=== PATIENT | female | born 1965 | race Asian ===

== ENCOUNTER 2016-09-18 08:00 | Outpatient (CLI) | payer MEDICAID | END 2016-09-18 08:01 | disposition home or self-care (01) | DX: I10 Essential (primary) hypertension (principal); E78.5 Hyperlipidemia, unspecified; E11.9 Type 2 diabetes mellitus without complications ==

== ENCOUNTER 2017-04-23 10:00 | Outpatient (CLI) | payer MEDICAID ==
[2017-04-23 10:40] LABS: BASOPHILS % (AUTO) 0.3 %; EOSINOPHILS # (AUTO) 0.1 10^3/uL (0.0-0.7); EOSINOPHILS % (AUTO) 1.6 %; HCT - HEMATOCRIT 38.3 % (37.0-47.0); HGB - HEMOGLOBIN 12.8 g/dL (12.0-16.0); LYMPHOCYTES # (AUTO) 1.9 10^3/uL (1.5-3.5); LYMPHOCYTES % (AUTO) 48.4 %; MEAN CORPUSCULAR HEMOGLOBIN 26.9 pg (27.0-31.0); MEAN CORPUSCULAR HGB CONC 33.3 g/dL (32.0-36.0); MEAN CORPUSCULAR VOLUME 80.5 fL (81.0-99.0); MEAN PLATELET VOLUME 7.8 fL (7.9-10.8); MONOCYTES # (AUTO) 0.3 10^3/uL (0.0-1.0); MONOCYTES % (AUTO) 7.4 %; NEUTROPHILS # (AUTO) 1.7 10^3/uL (1.5-6.6); NEUTROPHILS % (AUTO) 42.3 %; NUCLEATED RED BLOOD CELLS AUTO 0.1 /100WBC; RED BLOOD COUNT 4.75 10^6/uL (4.20-5.40); RED CELL DISTRIBUTION WIDTH 14.1 % (12.0-15.0); UNCORRECTED WHITE BLOOD COUNT 3.9 x10^3/uL; WHITE BLOOD COUNT 3.9 x10^3/uL (4.8-10.8)
[2017-04-23 10:45] LABS: ALBUMIN/GLOBULIN RATIO 1.3 (1.0-2.2); BILIRUBIN,TOTAL 0.6 mg/dL (0.2-1.0); CREATININE 0.5 mg/dL (0.4-1.0); POTASSIUM 3.8 mmol/L (3.5-5.0); TOTAL PROTEIN 7.4 g/dL (6.7-8.2)
[2017-04-23 10:49] LABS: HEMOGLOBIN A1C 0.71 g/dL
== END 2017-04-23 10:01 | disposition home or self-care (01) ==
LOC: LAB 10:00
PROVIDERS: ATTEND Obstetrics & Gynecology
DX: E08.319 Diabetes mellitus due to underlying condition with unspecified diabetic retinopathy without macular edema (principal)
CPT/HCPCS: 36415; 80053; 83036; 85025

== ENCOUNTER 2017-04-23 10:07 | Outpatient (CLI) | payer MEDICAID ==
--- NOTE | 2017-04-23 11:15 | XRAY Report ---
TWO VIEW CHEST: 04/23/2017 CLINICAL INDICATION: Diabetes. FINDINGS: Frontal and lateral views of the chest demonstrate a normal cardiac silhouette. The lungs are clear. No effusion or pneumothorax is present. IMPRESSION: NORMAL CHEST. JOB #: [id number] EXT JOB #:[id number]
--- NOTE | 2017-04-23 11:46 | Ultrasound Report ---
PELVIC ULTRASOUND: 04/23/2017 CLINICAL INDICATION: Leiomyoma. TECHNIQUE: Transabdominal pelvic ultrasound performed for global evaluation. Real-time scanning performed and static images obtained. COMPARISON: 07/31/2016. FINDINGS: The uterus is anteverted. It measures 16.6 x 14.4 x 9.2 cm ( previously 15.2 X 10.5 X 8.0 cm), and is again dominated by a heterogeneous leiomyoma. The endometrium is not confidently identified. The left ovary is surgically absent. The right ovary measures 3.4 x 3.0 x 3.0 cm, and appears unremarkable. Trace free fluid is seen in the right adnexa. IMPRESSION: BULKY, HETEROGENEOUS LEIOMYOMATOUS UTERUS. NORMAL RIGHT OVARY. UTERINE SIZE HAS INCREASED FROM PREVIOUS. JOB #: [id number] EXT JOB #: [id number]
== END 2017-04-23 10:08 | disposition home or self-care (01) ==
LOC: DI 10:07
PROVIDERS: ATTEND Obstetrics & Gynecology
DX: E13.319 Other specified diabetes mellitus with unspecified diabetic retinopathy without macular edema (principal); D25.9 Leiomyoma of uterus, unspecified
CPT/HCPCS: 71020; 76856

== ENCOUNTER 2017-04-23 14:28 | Outpatient (CLI) | payer MEDICAID | END 2017-04-23 14:29 | disposition home or self-care (01) | LOC: RT 14:28 | PROVIDERS: ATTEND Obstetrics & Gynecology | DX: E13.319 Other specified diabetes mellitus with unspecified diabetic retinopathy without macular edema (principal); D25.9 Leiomyoma of uterus, unspecified; E08.11 Diabetes mellitus due to underlying condition with ketoacidosis with coma; E08.319 Diabetes mellitus due to underlying condition with unspecified diabetic retinopathy without macular edema | CPT/HCPCS: 36415; 71020; 76856; 80053; 83036; 85025 ==

== ENCOUNTER 2017-06-04 12:18 | Outpatient (CLI) | payer MEDICAID ==
[2017-06-04 12:51] LABS: BASOPHILS % (AUTO) 0.4 %; EOSINOPHILS # (AUTO) 0.1 10^3/uL (0.0-0.7); EOSINOPHILS % (AUTO) 1.2 %; HCT - HEMATOCRIT 43.9 % (37.0-47.0); HGB - HEMOGLOBIN 14.6 g/dL (12.0-16.0); LYMPHOCYTES # (AUTO) 2.1 10^3/uL (1.5-3.5); LYMPHOCYTES % (AUTO) 36.8 %; MEAN CORPUSCULAR HEMOGLOBIN 27.1 pg (27.0-31.0); MEAN CORPUSCULAR HGB CONC 33.4 g/dL (32.0-36.0); MEAN CORPUSCULAR VOLUME 81.2 fL (81.0-99.0); MEAN PLATELET VOLUME 7.9 fL (7.9-10.8); MONOCYTES # (AUTO) 0.4 10^3/uL (0.0-1.0); NEUTROPHILS # (AUTO) 3.2 10^3/uL (1.5-6.6); NEUTROPHILS % (AUTO) 54.6 %; RED CELL DISTRIBUTION WIDTH 13.9 % (12.0-15.0); UNCORRECTED WHITE BLOOD COUNT 5.8 x10^3/uL; WHITE BLOOD COUNT 5.8 x10^3/uL (4.8-10.8)
[2017-06-04 13:02] LABS: BILIRUBIN,URINE NEGATIVE (NEGATIVE); PH,URINE 5.5 PH (5.0-7.5)
[2017-06-04 13:10] LABS: ALBUMIN/GLOBULIN RATIO 1.5 (1.0-2.2); BILIRUBIN,TOTAL 0.6 mg/dL (0.2-1.0); CREATININE 0.5 mg/dL (0.4-1.0); POTASSIUM 3.7 mmol/L (3.5-5.0); TOTAL PROTEIN 8.5 g/dL (6.7-8.2)
== END 2017-06-04 12:19 | disposition home or self-care (01) ==
LOC: LAB 12:18
PROVIDERS: ATTEND Obstetrics & Gynecology
DX: D25.9 Leiomyoma of uterus, unspecified (principal)
CPT/HCPCS: 36415; 80053; 81003; 85025; 86850; 86900; 86901

== ENCOUNTER 2017-06-05 15:07 | Outpatient (CLI) | payer MEDICAID ==
[~2017-06-05 15:07] MED LIST: GADOBUTROL 7.5 MMOL/7.5 ML VIAL ONE
[2017-06-05] MEDS ORDERED: GADOBUTROL 7.5 MMOL/7.5 ML VIAL IVP ONE (16:01)
--- NOTE | 2017-06-05 17:25 | MRI Preliminary Report ---
Exam: MRI PELVIS W/WO IMPRESSION: 1. Enlarged myomatous uterus with a large dominant fibroid as described above. 2. Right-sided Bartholin gland cyst. RADIA The call report notification system was initiated by Dr. Coty Huntley at 16:58 hrs on 06/05/17. The above findings were discussed with Dr. Recinos by Dr. Coty Huntley at 17:23 hrs on 06/05/17. SITE ID: [id number]
--- NOTE | 2017-06-05 17:28 | MRI Report ---
EXAM: MRI PELVIS WITHOUT AND WITH CONTRAST EXAM DATE: 06/05/2017 04:11 PM. CLINICAL HISTORY: Leiomyoma. Increased size of the myomatous uterus seen on the prior ultrasound. COMPARISON: Pelvic ultrasound 04/23/2017. TECHNIQUE: Multiplanar, multisequence T1-weighted and fluid-sensitive sequences of the pelvis before and after administration of intravenous contrast. IV contrast: Gadolinium. Other: None. FINDINGS: Enlarged myomatous uterus measuring 16.3 x 9.6 x 13.6 centimeters. Most of the uterus is one large va scular transmural fibroid which causes severe mass effect on the endometrium pushing it anteriorly. T his fibroid measures 9.3 x 14.2 x 13.5 cm. There are smaller scattered subserosal uterine fibroids, o ne of the largest is at the right fundus measuring 3.7 x 2.9 x 3.5 cm. Endometrium measures 4 mm. Ovaries are not well seen. The enlarged uterus causes mass effect on the bladder. Bladder is mostly decompressed and appears unr emarkable. Right-sided Bartholin gland cyst measures 2.3 x 1.5 cm. No acute bowel findings are seen. No free fluid. No inguinal or pelvic lymphadenopathy seen. No acute bone findings seen. IMPRESSION: 1. Enlarged myomatous uterus with a large dominant fibroid as described above. 2. Right-sided Bartholin gland cyst. RADIA The call report notification system was initiated by Dr. Coty Huntley at 16:58 hrs on 06/05/17. The above findings were discussed with Dr. Recinos by Dr. Coty Huntley at 17:23 hrs on 06/05/17. Referring Provider Line: [phone] SITE ID: [id number]
== END 2017-06-05 15:08 | disposition home or self-care (01) ==
LOC: DI 15:07
PROVIDERS: ATTEND Obstetrics & Gynecology
DX: D25.9 Leiomyoma of uterus, unspecified (principal); D25.2 Subserosal leiomyoma of uterus
CPT/HCPCS: 72197; A9585

== ENCOUNTER 2017-06-06 06:02 | Inpatient (IN) | payer MEDICAID ==
--- NOTE | 2017-06-05 15:55 | PREOP HISTORY & PHYSICAL ---
DATE OF ADMISSION/SURGERY: 06/06/2017 DIAGNOSES 1. Large intramural leiomyoma. 2. Associated abdominopelvic pain. 3. Type 2 diabetes. 4. Hypertension. 5. Asthma, quiescent. 6. Gastroesophageal reflux disease. INTENDED SURGEY: TOTAL LAPAROSCOPIC HYSTERECTOMY; PROBABLE LAPAROTOMY; BILATERAL SALPHINGECTOMY; CYSTOSCOPY HISTORY OF PRESENT ILLNESS: The patient is a 51-year-old Turk[place] primipara woman who was referred from [facility] for evaluation and treatment of a large myomatous uterus. Ultrasound documented expanding uterine myomas. The patient is now experiencing abdominopelvic pain and pressure. In July 2016 ultrasound documents a 15.2 x 10.5 x 8.0 myoma distorting the endometrium. There is no ovarian pathology noted, and left ovary is surgically absent. On , the myomatous uterus was noted to have expansion to 16.6 x 14.4 x 9.2 cm. The myoma seemed heterogeneous. There were no vascular changes suggestive of sarcoma. (Films reviewed with Dr. Watts.) MRI is scheduled. The fibroid uterus is tender and associated with a midline lower abdominopelvic tenderness. She reports perimenopausal menorrhagia. She was originally evaluated by Dr. Weeks and counseled on the available treatment options. The patient chose hysterectomy. She has had a 2nd counseling session with myself in which the various treatments were reviewed, including fibroid embolization and focused ultrasound versus various forms of hysterectomy. The patient strongly opted for hysterectomy and is interested in a vaginal approach, or if laparotomy is necessary a transverse incision. Hysterectomy advantages and risks were contrasted. She is aware of the possibility of blood loss, transfusion, infection, anesthesia reaction, postoperative pain, difficult recovery, including complications secondary to diabetes and hypertension. Possibility of sarcoma was also discussed, usually probabilities 1 in 1000, but given her age and documented fibroid expansion, the possibility is probably slightly higher, though not prohibitive. Ultrasound vascular characteristics are not consistent with a sarcoma. MRI is pending. Patient has had normal Pap smears. Last smear was in June 2016. Patient had an uneventful vaginal delivery of a male . HISTORY The patient has a longstanding history of type 2 diabetes in excess of 10 years. She maintains her weight and practices an ADA diet. Additionally, she uses metformin and exercise. Last hemoglobin A1c was 6.2. Patient has asthma, which is quiescent. She uses a ProAir inhaler as needed. Hyperlipidemia, on medication. Finally, gastric reflux. History of TMJ. PAST SURGICAL HISTORY 1. TMJ. 2. Colonoscopy 2013. 3. Left oophorectomy, uneventful. ALLERGIES 1. HYDROMORPHONE, PRURITUS. 2. ACCUPRIL. 3. HYDROCHLOROTHIAZIDE. MEDICATIONS 1. Metformin. 2. Benazepril. 3. Mini dose aspirin. 4. ProAir. 5. Multivitamin. 6. Iron. FAMILY HISTORY: Positive for diabetes and CAD, CVA. No inheritable diseases known. 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 Teenage son. Very active in community, doing karen work and pentecostalism activities. Never a smoker, nor drugs, nor alcohol. REVIEW OF SYSTEMS CONSTITUTIONAL: No fevers, chills. HEENT: Negative. LUNGS: Asthma as noted in the HPI. CARDIOVASCULAR: No chest pain currently, occasional description of vague chest discomfort. BREASTS: Negative. GI: Negative. : See HPI. No stress or urge incontinence. MUSCULOSKELETAL: Negative. NEUROLOGIC: Negative. SKIN: Negative. PHYSICAL EXAMINATION GENERAL: Well-groomed, slender woman, sitting comfortably in a chair, alert, oriented, fluid speech; good command of the Malay language. VITAL SIGNS: Afebrile, normotensive. HEAD/NECK: EOMI. Nonicteric sclerae. Neck supple. Dentition in good repair. No thyromegaly. LUNGS: Clear to auscultation in all lobes. CARDIAC: Regular, no murmur, no gallop. EKG pending. BREASTS: Deferred. ABDOMEN: No hepatosplenomegaly. Midline bulge from a 16 to 17-week size uterus, somewhat tender. GENITOURINARY: Vulva, no lesions. Normal hair distribution. VAGINA: No significant cystorectocele. No urethral tenderness or noted hypermobility. CERVIX: Distorted and difficult to find cervical os due to fibroid effect. UTERUS: A 17, possibly 18 weeks' size. ADNEXA: Cannot evaluate due to uterine size. EXTREMITIES: Good motion in all 4 extremities, no joint tenderness or muscle wasting. Feet warm. NEUROLOGIC: Grossly intact. Patellar reflexes 2+ and equal. SKIN: Survey of the skin finds no significant openings or rash. ASSESSMENT: The patient has a large uterine leiomyoma that may have had slight expansion over the last 11 months. Uterine tenderness thought to be due to degeneration. Ultrasound characteristics are not suspect for sarcoma. MRI pending. The patient desires hysterectomy, valuing expedient solution and removal of uterus. Hysterectomy may be technically challenging. The patient requests attempt at vaginal hysterectomy if possible, and total laparoscopic hysterectomy may be an option. However, we will need to establish a method of mobilization of the uterus through the endocervical canal. Review of MRI is necessary to determine if there is enough space to allow vaginal approach or laparoscopic approach. Alternatively, there is a high possibility of laparotomy. Mobility will affect the incision type since an immobile uterus may make it difficult to access anatomy through a transverse incision. PLAN: Approach to patient's hysterectomy will be tempered by the MRI information and clinical exam under anesthesia. Patient understands that a laparotomy may be necessary, and if mobility is a concern, midline incision may work best. At current time, we do not suspect sarcoma, but MRI information will help confirm this opinion. Patient understands if the uterus is morcellated and the tumor is malignant it could spread the cancer and worsen her prognosis. Had detailed discussion with the patient as to surgical approach and options. She consents to MRI. Preoperatively, we will use MiraLax laxative as a mild mechanical bowel prep. Preoperative antibiotics per standards. Sequential compression boots in the OR. JOB #: [id number] EXT JOB #:[id number] ERMIAS
[2017-06-06] MEDS ORDERED: LACTATED RINGERS 1,000 ML IV ONE ×5 (06:37→13:28)
[2017-06-06] MEDS ORDERED: ceFAZolin 2 GM/50 ML 2 GM/50 ML BAG IV ONE (06:38)
[2017-06-06 06:51] LABS: HCG UR QUAL NEGATIVE
[2017-06-06] MEDS ORDERED: GENTAMICIN 40 MG/1 ML 2 ML MDV ONE (09:00)
[2017-06-06] MEDS ORDERED: ACETAMINOPHEN 1,000 MG/100 ML 100 ML IV ONE (09:25)
[2017-06-06] MEDS ORDERED: MIDAZOLAM 2 MG/2 ML VIAL IVP ONE (09:25)
[2017-06-06] MEDS ORDERED: LIDOCAINE-MPF 2% 5 ML VIAL IM ONE (09:25)
[2017-06-06] MEDS ORDERED: BUPIV EP ONE (09:25)
[2017-06-06] MEDS ORDERED: FENT EP ONE (09:25)
[2017-06-06] MEDS ORDERED: ePHEDrine 50 MG/ML AMP IVP ONE (09:25)
[2017-06-06] MEDS ORDERED: PROPOFOL 200 MG/20 ML VIAL IVP ONE (09:25)
[2017-06-06] MEDS ORDERED: GLYCOPYRROLATE 1 MG/5 ML VIAL IVP ONE (09:25)
[2017-06-06] MEDS ORDERED: NEOSTIGMINE 1 MG/1 ML 10 ML MDV IVP ONE (09:25)
[2017-06-06] MEDS ORDERED: PHENYLEPHRINE 10 MG/ML VIAL IV ONE (09:25)
[2017-06-06] MEDS ORDERED: BUPIVACAINE 0.5%-EPI 1:200000 PF 30 ML VIAL SUBQ ONE (09:45)
[2017-06-06] MEDS ORDERED: GENTAMICIN 40 MG/1 ML 2 ML MDV IL ONE (09:46)
[2017-06-06] MEDS ORDERED: SODIUM CHLORIDE 0.9% 1,000 ML IV ONE (13:27)
[2017-06-06] MEDS ORDERED: BUPIVACAINE 0.5% PF 30 ML VIAL INFIL ONE (13:29)
[2017-06-06] MEDS ORDERED: ONDANSETRON 4 MG/2 ML VIAL IVP PRN (14:13)
[2017-06-06] MEDS ORDERED: ZOLPIDEM 5 MG TABLET PO PRN (14:13)
--- NOTE | 2017-06-06 14:16 | XRAY Report ---
SUPINE ABDOMEN: 06/06/2017 CLINICAL INDICATION: Incorrect count. FINDINGS: Portable supine intraoperative image demonstrates no evidence of a retained surgical instr ument. IMPRESSION: NO EVIDENCE OF RETAINED SURGICAL INSTRUMENT. CRITICAL TEST: RESULTS CALLED TO THE OPERATING ROOM ON 06/06/2017 AT 1330 HOURS. JOB #: [id number] EXT JOB #:[id number]
[2017-06-06 14:18] LABS: BASOPHILS % (AUTO) 0.2 %; EOSINOPHILS % (AUTO) 0.1 %; LYMPHOCYTES # (AUTO) 2.1 10^3/uL (1.5-3.5); LYMPHOCYTES % (AUTO) 14.1 %; MEAN CORPUSCULAR HEMOGLOBIN 26.5 pg (27.0-31.0); MEAN CORPUSCULAR HGB CONC 32.7 g/dL (32.0-36.0); MEAN PLATELET VOLUME 7.9 fL (7.9-10.8); MONOCYTES % (AUTO) 6.7 %; NEUTROPHILS # (AUTO) 11.8 10^3/uL (1.5-6.6); NEUTROPHILS % (AUTO) 78.9 %; RED BLOOD COUNT 2.31 10^6/uL (4.20-5.40); RED CELL DISTRIBUTION WIDTH 13.6 % (12.0-15.0)
[2017-06-06 14:25] LABS: HCT - HEMATOCRIT 18.7 % (37.0-47.0); HGB - HEMOGLOBIN 6.1 g/dL (12.0-16.0)
[2017-06-06] MEDS: fentaNYL 100 MCG/2 ML VIAL ONE ×2 (14:25→15:25)
[2017-06-06] MEDS ORDERED: HYDROmorphone 1 MG/ML AMP ONE (14:27)
[2017-06-06] MEDS ORDERED: INSULIN REGULAR HUMAN 100 UNIT/1 ML 10 ML MDV ONE (14:34)
[2017-06-06] MEDS ORDERED: diphenhydrAMINE INJ 50 MG/ML VIAL ONE (14:44)
--- NOTE | 2017-06-06 14:49 | OPERATIVE REPORT ---
Operative Report - General Admit Date: 06/06/17 Procedure Date: 06/06/17 Planned Procedure: TLH Possible GASPER Pre-Op Diagnosis: Expanding Large Fibriod Uterus, Pelvic Pain; DM; HTN; Asthma Procedure Performed: TLH converted to GASPER, Cystoscopy Post Op Diagnosis: Same - Procedure Note Primary Surgeon: Bacilio Buchanan MD, Secondary Surgeon: Rebekah Recinos DO Anesthesia Technique: General ET tube Pathology: Myomas & Uterus IV Fluids (mL): 4,700 Estimated Blood Loss (mL): 800 Urine Output (mL): 350 Drain/Tube Type: Other (Horowitz) Complications: None - Other Other Information/Narrative: Postop Hbg 6.1 w stable VS; Transfusion 2 u PRBC
[2017-06-06 15:22] LABS: HCT - HEMATOCRIT 28.1 % (37.0-47.0); HGB - HEMOGLOBIN 9.2 g/dL (12.0-16.0); MEAN CORPUSCULAR HEMOGLOBIN 27.4 pg (27.0-31.0); MEAN CORPUSCULAR HGB CONC 32.7 g/dL (32.0-36.0); MEAN CORPUSCULAR VOLUME 83.8 fL (81.0-99.0); MEAN PLATELET VOLUME 8.1 fL (7.9-10.8); RED BLOOD COUNT 3.35 10^6/uL (4.20-5.40); RED CELL DISTRIBUTION WIDTH 14.8 % (12.0-15.0); WHITE BLOOD COUNT 17.5 x10^3/uL (4.8-10.8)
[2017-06-06 15:34] LABS: CALCIUM 7.6 mg/dL (8.5-10.3); CREATININE 0.6 mg/dL (0.4-1.0); POTASSIUM 3.2 mmol/L (3.5-5.0)
[2017-06-06] MEDS ORDERED: fentaNYL 100 MCG/2 ML VIAL ONE (15:50)
[2017-06-06] MEDS ORDERED: SODIUM CHLORIDE FLUSH 0.9% 10 ML SYRINGE IVP ONE (16:15)
[2017-06-06] MEDS: LACTATED RINGERS 1,000 ML IV SCH (16:50)
[2017-06-06] MEDS ORDERED: IBUPROFEN 600 MG TABLET PO SCH (18:00)
[2017-06-06 18:12] LABS: HCT - HEMATOCRIT 35.8 % (37.0-47.0); HGB - HEMOGLOBIN 11.8 g/dL (12.0-16.0)
[2017-06-06] MEDS: ACETAMINOPHEN 1,000 MG/100 ML 100 ML IV PRN (19:55)
[2017-06-06] MEDS ORDERED: POTASSIUM CHLORIDE 20 MEQ TABLET PO SCH (20:35)
[2017-06-06 20:55] LABS: BASOPHILS % (AUTO) 0.1 %; HCT - HEMATOCRIT 32.5 % (37.0-47.0); HGB - HEMOGLOBIN 10.8 g/dL (12.0-16.0); LYMPHOCYTES # (AUTO) 0.8 10^3/uL (1.5-3.5); LYMPHOCYTES % (AUTO) 5.5 %; MEAN CORPUSCULAR HEMOGLOBIN 27.5 pg (27.0-31.0); MEAN CORPUSCULAR HGB CONC 33.3 g/dL (32.0-36.0); MEAN CORPUSCULAR VOLUME 82.5 fL (81.0-99.0); MEAN PLATELET VOLUME 8.4 fL (7.9-10.8); MONOCYTES # (AUTO) 0.8 10^3/uL (0.0-1.0); MONOCYTES % (AUTO) 5.5 %; NEUTROPHILS # (AUTO) 12.8 10^3/uL (1.5-6.6); NEUTROPHILS % (AUTO) 88.9 %; RED BLOOD COUNT 3.94 10^6/uL (4.20-5.40); RED CELL DISTRIBUTION WIDTH 14.3 % (12.0-15.0); UNCORRECTED WHITE BLOOD COUNT 14.4 x10^3/uL; WHITE BLOOD COUNT 14.4 x10^3/uL (4.8-10.8)
[2017-06-06 21:06] LABS: ALBUMIN/GLOBULIN RATIO 1.4 (1.0-2.2); BILIRUBIN,TOTAL 1.1 mg/dL (0.2-1.0); CALCIUM 7.9 mg/dL (8.5-10.3); CREATININE 0.6 mg/dL (0.4-1.0); POTASSIUM 3.7 mmol/L (3.5-5.0); TOTAL PROTEIN 4.6 g/dL (6.7-8.2)
[2017-06-06 21:09] LABS: HEMOGLOBIN A1C 0.51 g/dL
[2017-06-06] MEDS: FAMOTIDINE 20 MG TABLET PO SCH (21:28)
[2017-06-06] MEDS: cefTRIAXone 1 GM in SODIUM CHLORIDE 0.9% MINIBAG 100 ML IV SCH (21:29)
[2017-06-06] MEDS: INSULIN ASPART 300 UNIT/3 ML PEN SUBQ SCH (21:48)
[2017-06-06] MEDS: SODIUM CHLORIDE FLUSH 0.9% 10 ML SYRINGE IVP SCH (23:27)
[2017-06-07] MEDS: MORPHINE 2 MG/ML SYRINGE IVP PRN ×5 (01:13→14:10)
[2017-06-07] MEDS: LACTATED RINGERS 1,000 ML IV SCH ×2 (02:57→14:16)
--- NOTE | 2017-06-07 03:21 | OPERATIVE REPORT ---
DATE OF SURGERY: 06/06/2017 00:00:00 PREOPERATIVE DIAGNOSES 1. Expanding large leiomyometrium, A 17-18 week size dominated by a large leiomyoma and several small ones. 2. Associated pelvic pain. 3. Type 2 diabetes. 4. Hypertension. 5. Asthma. POSTOPERATIVE DIAGNOSES 1. Expanding large leiomyometrium. 2. Associated pelvic pain. 3. Type 2 diabetes. 4. Hypertension. 5. Asthma. 6. 20 week fibroid uterus found dominated by a large leiomyoma and several small ones. PROCEDURES: Laparoscopic assisted hysterectomy converted to total abdominal hysterectomy, myomectomy, cystoscopy, adhesiolysis. SURGEON: Bacilio Buchanan MD, FACOG. PRODUCTION HAND: Rebekah Recinos DO, FACOG. HAIR DRYER: Grady Crockett, certified nurse shift supervisor rn. ANESTHESIA: General, ET tube placed. COMPLICATIONS: None. BLOOD LOSS: 400. FLUIDS 4700. URINE OUTPUT: 700. FINDINGS: Exam under anesthesia finds the cervix markedly distorted and pushed deep into the patient's left vaginal fornix. The uterus palpates to about 17-19 weeks' size. There are no vulvar lesions. There is no cuff dehiscence. Laparoscopy reveals an 20 week size uterus with cystic activity on the left ovary. During laparotomy, it was confirmed that she had underwent a right salphing- oophorectomy. The uterus was dominated by a large fibroid and several small 3-4 cm fibroids. The uterine body itself had been Isma rotated and pushed far to the left. When eventually harvested, the cervix was inspected and had no lesions. The uterine vessels, bladder & ureters were distorted by mass effect. The left ovary appeared to be benign. There were dense adhesions between the uterus and pelvic side carranza, the anterior abdominal wall, & the rectum. Cystoscopy confirms functional right and left ureter. The bladder cavity normalized to globular configuration. There was no cystitis. TECHNIQUE: Prior to the procedure, I had a consultation with [facility] radiologist to review the MRI. There was marked anatomic distortion due to the large uterine fibroid and secondary fibroids. Mass effect created twisting and deflection of the uterus to the left. There were no characteristics of the MRI suggestive of sarcoma. Prior to surgery, I had a final preop conference with the patient and her niece & nephew (Nurses and Nurse practitioner) I reviewed the MRI results. An option was suggested that she undergo fibroid embolization. The advantage would be that the uterine fibroids would be smaller and a hysterectomy would not be as difficult, thereby decreasing the chance of hemorrhage or damage to urinary structures. If effective fibroid embolization may negate the need for hysterectomy. The patient and family spent 15 minutes considering After answering all the family's pertinent questions. The patient decided that she would rather undergo hysterectomy today due to the amount of pain that she was experiencing. She is aware of the large fibroid posed increased surgical risk. Operative consent was signed. Plan was understood to be laparoscopy with probable laparotomy. Laparoscopy's most achievable goal was to dissect and ligate the uterine arteries In order to reduce blood loss during anticipated abdominal hysterectomy with myomectomy. The patient was told that she would probably have a midline incision. The patient was brought to the operating room and placed in the supine position on the OR table. She was uneventfully induced and intubated. She was moved to the low dorsal lithotomy position. She was prepped in the standard sterile fashion, including a Horowitz catheter. A timeout briefing was done per protocol. Exam under anesthesia was conducted. The vaginal apex was elevated in the pelvis with the cervix itself turned strongly to the left side. Exam under anesthesia confirmed 18-19 week size uterus. No uterine manipulator was inserted. A 5 mm trocar was inserted through the umbilicus under direct visualization. The abdomen was insufflated; however, the uterus actually blocked the trocar outflow. Therefore, a Veress needle was placed in the midclavicular line on the right side at Brooks's point. Saline drop test was good. The abdomen was insufflated with CO2 gas under 12 mm of pressure. Insufflation created more space for surgery. The 5 mm trocar operating ports were placed slightly below the umbilicus on the right and left side. The abdomen was assessed. The right tube and ovary were identified. The tube was adherent into the cul-de- sac. The round ligament was desiccated and divided with LigaSure. Next, the ovarian uterine ligament was desiccated and divided with LigaSure. We continued sharp dissection and periodic use of the LigaSure to open the broad ligament anteriorly. The left ureter entered the pelvis at the brim and tracked. Lower in the pelvis, it was difficult to determine the exact path because adhesions and distortion of some anatomic structures. An anterior bladder flap was developed with LigaSure. A laparoscopic single-toothed tenaculum was used to place the uterus on medial tension and provide exposure to the retroperitonal space and eventual access to the uterine vessels. Unfortunately, the tenaculum Puncture and Prior dissection in the Left corneal region oozed. The oozing area was clamped with laparoscopic Hemoclips. LigaSure was used to apply bipolar cautery. The The bleeding did not come under adequate control and the decision was made to convert to laparotomy. At this point, measured blood loss was between 250 and 300 mL. The abdomen was opened uneventfully with a midline incision starting just above the pubis and extending to just below the umbilicus. A Kay retractor was placed. Pressure was placed of on the right uterine cornual dissection . Traction was placed on the uterus to expose the vessels. Using the LigaSure and staying close to the uterine body, feeding vessels on the left side were desiccated. A similar dissection was conducted on the right side. The right tube and ovary were surgically absent. Exposure was problematic. Decision was made to perform myomectomy to access the lower uterine segment in order to complete the hysterectomy, and 5 mL of dilute Pitressin were injected into the uterine leiomyoma capsule and massaged around to the fibroid body. Prior to shelling out the main fibroid, a smaller fibroid was performed. Next, the anterior portion of the fibroid was opened with a scalpel and a cleavage plane developed between the myometrium and fibroid. Multiple uses of monopolar cautery, bipolar cautery, and suture ligature were used. Occasionally, we ran into a significant vessel that was suture ligated. Eventually, the main fibroid was shelled out. Photos were taken. The myometrium was Ttghtly closed with multiple sutures of #1 Vicryl to obliterate the raw space and provide hemostasis. After removal of the major fibroid, the uterus was palpated and cervical fibroids were identified. A bladder flap was developed with sharp dissection and the uterus mobilized superiorly. Staying close to the uterine body, feeding vessels including the uterine arteries on the right side were desiccated and divided with LigaSure. Special care was taken in the anterior dissection to avoid the ureters, which were anticipated to be out draped anterior over the cervix midline. Meticulous dissection with sharp and electrocautery was done to mobilize the distorted cervix and uterus. Using a sponge stick, anterior fornix was identified and sharply opened with monopolar cautery. Next, the left hand side of the cervical cuff was circumscribed. Using the LigaSure, major vessels including the uterine vessel were desiccated and divided close to the uterus, thus avoiding the displaced ureters. After circumscribing the cervix, the vaginal cuff was closed with a running interlocked stitch of 2-0 Vicryl. Attention was next turned to the cystoscopic phase. The Horowitz was discontinued and an 70 degree video cystoscope was introduced into the bladder. Systematic scanning of the bladder confirmed no incursions or disruption or cystitis. The right and left ureteric orifices were found and there was free flow of blue stained urine on each side. Photographs were taken. The cystoscope was removed and Horowitz replaced. The abdominal cavity was lavaged with warm normal saline and rinsed with gentamicin solution. There was some ooze near the the right utero-ovarian ligament. This area was desiccated. Operative sites were inspected and found to be hemostatically secure. Next, we re-peritonealized the pelvis with a running stitch of 2-0 Vicryl. Closure was accomplished with a peritoneal stitch of 2-0 Vicryl, followed by series of interrupted stitches closing the rectus muscles. The fascia was closed with interrupted sutures of 0 Vicryl. Subcutaneous space was closed with interrupted sutures of 2-0 Vicryl. Skin was closed with a running subcuticular stitch of 4-0 Vicryl. Trocar wounds were closed with Dermabond. After spraying Mastisol on the skin margins, a wound VAC was applied to the midline incision. The patient was uneventfully awakened from general anesthesia and extubated. She went to the recovery room in stable condition. DISPOSITION: In recovery, the patient was noted to be hypotensive with tachycardia. Immediate hemoglobin was done and was found to be 6.2. The 2 units of packed red blood cells in reserve were transfused. Given the amount of IVF given, it was unsure what component of the anemia was dilutional versus intraoperative blood loss. I watched the abdomen with serial inspection for distention, which did not occur. Electrolytes were accomplished, which showed mild Hypokalemia. Fentanyl was used at 50 mcg about every hour for pain control. Prior to moving to the floor, hospitalist's consultation was obtained with Dr. Ivy. It was decided that they would manage her diabetes and hypertension and I requested a monitored bed. JOB #: [id number] EXT JOB #:[id number] ERMIAS
--- NOTE | 2017-06-07 04:10 | CONSULTATION NOTE ---
DATE OF CONSULTATION: 06/06/2017 00:00:00 TIME: 8:45 p.m. CODE STATUS: FULL CODE. PRIMARY CARE DOCTOR: Grady Barbosa MD. EXAM LIMITATIONS: None. RECORDS REVIEWED: Yes. SOURCE OF INFORMATION: The patient. CHIEF COMPLAINT: She came in for a total hysterectomy for a large intramural leiomyoma. The patient does not have an advanced directive. HISTORY OF PRESENT ILLNESS: The patient is a 51-year-old female who was admitted for a total hysterectomy for a large intramural leiomyoma. Her diabetes mellitus, hypertension, history of asthma, and gastroesophageal reflux disease will need to be treated. DRUG ALLERGIES 1. HYDROCHLOROTHIAZIDE. 2. QUINAPRIL. 3. HYDROMORPHONE (RASH). 4. AVOCADO. HOME MEDICATIONS 1. Calcium carbonate 600 mg 1 tab p.o. every day. 2. Benazepril 40 mg 1 tab p.o. every day. 3. Baby aspirin 81 mg 1 tab p.o. every day. 4. ProAir 8.5 puff INH every day. 5. Metformin 1000 mg 1 tab p.o. twice a day. 6. Multivitamin 1 tab p.o. every day. 7. Ferrous sulfate. PAST MEDICAL HISTORY: Type 2 diabetes mellitus, hypertension, hyperlipidemia, asthma and GERD. PAST SURGICAL HISTORY: TMJ, colonoscopy and left oophorectomy. FAMILY HISTORY: Mother and father, diabetes mellitus. Nephew, thyroid disease. Maternal grandfather, coronary artery disease. Mother and father, CVA. SOCIAL HISTORY: She is . She has one child. She works at a [email or web address]. She does not smoke. She does not drink alcohol. She does not use recreational drugs and she lives at home with her child. REVIEW OF SYSTEMS RESPIRATORY: There is no shortness of breath, no productive cough. HEART: No palpitations. No chest pain. ABDOMEN: Constipation and pelvic pain. URINARY: No burning urine, no frequency. HEAD: No headaches. EYES: No blurred vision. EARS: No tinnitus, no ear pain. NOSE: No runny nose. THROAT: No pain or redness. MUSCULOSKELETAL: There is lower back pain. JOINTS: No joint pain. NEUROLOGICAL: No dementia. No aphasia, no limb weakness. WEAKNESS AND FATIGUE: Yes. FEVER: No. PHYSICAL EXAMINATION VITAL SIGNS: Temperature of 95 degrees, pulse of 96, respiratory rate of 23, blood pressure 91/59, O2 saturation of 98% on room air. GENERAL: She is alert and cooperative. HEENT: Head is atraumatic, normocephalic. Eyes are PERRLA, EOMI. NECK: Supple. No JVD, no bruits, no thyroid enlargement. No adenopathy. HEART: Regular rate and rhythm. LUNGS: Clear to auscultation. ABDOMEN: Positive for bowel sounds that are hypoactive. It is soft. She is tender over the pelvic region. There is no rebound, no guarding. EXTREMITIES: Warm. There is no edema, +2 pedal pulses. She has 5/5 muscle strength in upper and lower extremities. NEUROLOGIC: She is oriented x3, follows commands, moves all 4 extremities. Cranial nerves 2-12 are intact. LABORATORY DATA: On labs, her sodium is 137, potassium is 3.2, chloride is 104, bicarbonate is 21, BUN is 16, creatinine 0.6, glucose is 269. White blood cells are 17.5, hemoglobin is 9.2, hematocrit is 28.1, platelets are 257,000. BNP is 10. Glomerular filtration rate is 105. ASSESSMENT AND PLAN: She had a laparoscopic total hysterectomy for a large intramural leiomyoma today, so it is status postop day 1. Her type 2 diabetes mellitus is being treated with sliding scale NovoLog. For her hypokalemia, she will get potassium chloride. Her hypotension is being controlled with IV fluids. Her history of asthma is not being treated at present because the patient has no shortness of breath. For her gastroesophageal reflux disease, the patient is on Pepcid. For suspected infection, she is on IV Rocephin, blood cultures and sensitivity x2. For deep venous thrombosis prophylaxis, she is on SCDs. The Pepcid is being used to also prevent stress ulcers. Her anticipated length of stay is 3 days. JOB #: [id number] EXT JOB #:[id number] [facility]
[2017-06-07 05:42] LABS: BASOPHILS % (AUTO) 0.1 %; EOSINOPHILS % (AUTO) 0.1 %; HCT - HEMATOCRIT 28.5 % (37.0-47.0); HGB - HEMOGLOBIN 9.6 g/dL (12.0-16.0); LYMPHOCYTES # (AUTO) 1.7 10^3/uL (1.5-3.5); LYMPHOCYTES % (AUTO) 16.2 %; MEAN CORPUSCULAR HEMOGLOBIN 27.9 pg (27.0-31.0); MEAN CORPUSCULAR HGB CONC 33.8 g/dL (32.0-36.0); MEAN CORPUSCULAR VOLUME 82.5 fL (81.0-99.0); MEAN PLATELET VOLUME 8.7 fL (7.9-10.8); MONOCYTES # (AUTO) 0.8 10^3/uL (0.0-1.0); NEUTROPHILS % (AUTO) 75.6 %; RED BLOOD COUNT 3.45 10^6/uL (4.20-5.40); RED CELL DISTRIBUTION WIDTH 14.7 % (12.0-15.0); UNCORRECTED WHITE BLOOD COUNT 10.5 x10^3/uL; WHITE BLOOD COUNT 10.5 x10^3/uL (4.8-10.8)
[2017-06-07 05:53] LABS: ALBUMIN/GLOBULIN RATIO 1.4 (1.0-2.2); BILIRUBIN,TOTAL 0.4 mg/dL (0.2-1.0); CALCIUM 7.8 mg/dL (8.5-10.3); CREATININE 0.4 mg/dL (0.4-1.0); TOTAL PROTEIN 4.7 g/dL (6.7-8.2)
[2017-06-07] MEDS: SODIUM CHLORIDE FLUSH 0.9% 10 ML SYRINGE IVP SCH ×3 (06:46→21:25)
[2017-06-07] MEDS: INSULIN ASPART 300 UNIT/3 ML PEN SUBQ SCH ×4 (08:31→21:24)
[2017-06-07] MEDS: oxyCODONE 5 MG TABLET PO PRN ×3 (08:46→18:17)
[2017-06-07] MEDS: cefTRIAXone 1 GM in SODIUM CHLORIDE 0.9% MINIBAG 100 ML IV SCH (08:46)
[2017-06-07] MEDS: POLYETHYLENE GLYCOL 3350 17 GM PACKET PO SCH (08:47)
[2017-06-07] MEDS: FAMOTIDINE 20 MG TABLET PO SCH ×2 (08:47→20:15)
--- NOTE | 2017-06-07 12:31 | PROVIDER PROGRESS NOTE ---
Subjective - General Admit Date: 06/06/17 Procedure Date: 06/06/17 Post Op Days: 1 Procedure Performed: GASPER, Myomectomy, cysto, laparoscopy - Review of Systems Wound/Incisions: positive: Healing well Drain Type: Horowitz Drain Output Description: Clear Blue Stained General: positive: Weakness, Fatigue HEENT: positive: No symptoms Pulmonary: positive: No symptoms Cardiovascular: positive: No symptoms Gastrointestinal: positive: Abdominal pain Genitourinary: positive: No symptoms Musculoskeletal: positive: Shoulder pain (Bursitis R) Skin: positive: No symptoms Psychiatric: positive: Anxiety - Other Other Information/Narrative: Patient had a stormy course immediately postop w hypotension & tachycardia. 2 units of PRBC transused. Pt tranferred to ICU for close watch. Hospitalists suspected failure but BPN negative. BP improved and urine output maintained. Serial H/H show 1g decrease since last night. Pt has brightened. Objective - Patient Data Vital Signs: Vital Signs x48h Temp Pulse Resp BP Pulse Ox 06/07/17 12:00 97 21 124/53 L 95 06/07/17 11:00 93 23 128/54 L 97 06/07/17 10:00 91 23 121/55 L 96 06/07/17 09:00 88 25 H 123/47 L 97 06/07/17 07:59 99.7 F H 83 22 119/54 L 95 06/07/17 06:50 84 21 113/49 L 98 06/07/17 06:00 83 20 108/52 L 99 06/07/17 05:00 80 24 119/56 L 97 Weight: Weight 06/05/17 06/06/17 06/07/17 23:59 23:59 23:59 Weight (kg) 64 kg Intake & Output: Intake and Output Totals x24h 06/05/17 06/06/17 06/07/17 23:59 23:59 23:59 Intake Total 200 2278.333 Output Total 1200 1100 Balance -1000 1178.333 - Lab Results Lab Results: 06/07/17 04:42 06/07/17 04:42 Other Lab Results: Lab Results x24hrs 06/07/17 06/07/17 06/07/17 Range/Units 12:20 07:57 04:42 WBC (4.8-10.8) x10^3/uL RBC (4.20-5.40) 10^6/uL Hgb (12.0-16.0) g/dL Hct (37.0-47.0) % MCV (81.0-99.0) fL MCH (27.0-31.0) pg MCHC (32.0-36.0) g/dL RDW (12.0-15.0) % Plt Count (130-450) 10^3/uL MPV (7.9-10.8) fL Neut # (1.5-6.6) 10^3/uL Lymph # (1.5-3.5) 10^3/uL Jerauld # (0.0-1.0) 10^3/uL Eos # (0.0-0.7) 10^3/uL Baso # (0.0-0.1) 10^3/uL Absolute Nucleated RBC x10^3/uL Nucleated RBC % /100WBC Sodium 137 (135-145) mmol/L Potassium 4.0 (3.5-5.0) mmol/L Chloride 103 (101-111) mmol/L Carbon Dioxide 26 (21-32) mmol/L Anion Gap 8.0 (6-13) BUN 10 (6-20) mg/dL Creatinine 0.4 (0.4-1.0) mg/dL Estimated GFR (MDRD) 168 (>89) Glucose 153 H (70-100) mg/dL POC Whole Bld Glucose 166 H 131 H (70 - 100) mg/dL Glycated Hemoglobin (4.6-6.2) % Estim Average Glucose (70-100) Calcium 7.8 L (8.5-10.3) mg/dL Total Bilirubin 0.4 (0.2-1.0) mg/dL AST 69 H (10-42) IU/L ALT 77 H (10-60) IU/L Alkaline Phosphatase 24 L (42-121) IU/L B-Natriuretic Peptide (5-100) pg/mL Total Protein 4.7 L (6.7-8.2) g/dL Albumin 2.7 L (3.2-5.5) g/dL Globulin 2.0 L (2.1-4.2) g/dL Albumin/Globulin Ratio 1.4 (1.0-2.2) Blood Type Antibody Screen Crossmatch IS Only 06/07/17 06/06/17 06/06/17 Range/Units 04:42 21:26 20:37 WBC 10.5 (4.8-10.8) x10^3/uL RBC 3.45 L (4.20-5.40) 10^6/uL Hgb 9.6 L (12.0-16.0) g/dL Hct 28.5 L (37.0-47.0) % MCV 82.5 (81.0-99.0) fL MCH 27.9 (27.0-31.0) pg MCHC 33.8 (32.0-36.0) g/dL RDW 14.7 (12.0-15.0) % Plt Count 188 (130-450) 10^3/uL MPV 8.7 (7.9-10.8) fL Neut # 8.0 H (1.5-6.6) 10^3/uL Lymph # 1.7 (1.5-3.5) 10^3/uL Jerauld # 0.8 (0.0-1.0) 10^3/uL Eos # 0.0 (0.0-0.7) 10^3/uL Baso # 0.0 (0.0-0.1) 10^3/uL Absolute Nucleated RBC 0.00 x10^3/uL Nucleated RBC % 0.0 /100WBC Sodium (135-145) mmol/L Potassium (3.5-5.0) mmol/L Chloride (101-111) mmol/L Carbon Dioxide (21-32) mmol/L Anion Gap (6-13) BUN (6-20) mg/dL Creatinine (0.4-1.0) mg/dL Estimated GFR (MDRD) (>89) Glucose (70-100) mg/dL POC Whole Bld Glucose 196 H (70 - 100) mg/dL Glycated Hemoglobin 6.4 H (4.6-6.2) % Estim Average Glucose 137 H (70-100) Calcium (8.5-10.3) mg/dL Total Bilirubin (0.2-1.0) mg/dL AST (10-42) IU/L ALT (10-60) IU/L Alkaline Phosphatase (42-121) IU/L B-Natriuretic Peptide (5-100) pg/mL Total Protein (6.7-8.2) g/dL Albumin (3.2-5.5) g/dL Globulin (2.1-4.2) g/dL Albumin/Globulin Ratio (1.0-2.2) Blood Type Antibody Screen Crossmatch IS Only 06/06/17 06/06/17 06/06/17 Range/Units 20:37 20:37 20:37 WBC 14.4 H (4.8-10.8) x10^3/uL RBC 3.94 L (4.20-5.40) 10^6/uL Hgb 10.8 L (12.0-16.0) g/dL Hct 32.5 L (37.0-47.0) % MCV 82.5 (81.0-99.0) fL MCH 27.5 (27.0-31.0) pg MCHC 33.3 (32.0-36.0) g/dL RDW 14.3 (12.0-15.0) % Plt Count 180 (130-450) 10^3/uL MPV 8.4 (7.9-10.8) fL Neut # 12.8 H (1.5-6.6) 10^3/uL Lymph # 0.8 L (1.5-3.5) 10^3/uL Jerauld # 0.8 (0.0-1.0) 10^3/uL Eos # 0.0 (0.0-0.7) 10^3/uL Baso # 0.0 (0.0-0.1) 10^3/uL Absolute Nucleated RBC 0.00 x10^3/uL Nucleated RBC % 0.0 /100WBC Sodium 138 (135-145) mmol/L Potassium 3.7 (3.5-5.0) mmol/L Chloride 103 (101-111) mmol/L Carbon Dioxide 23 (21-32) mmol/L Anion Gap 12.0 (6-13) BUN 13 (6-20) mg/dL Creatinine 0.6 (0.4-1.0) mg/dL Estimated GFR (MDRD) 105 (>89) Glucose 227 H (70-100) mg/dL POC Whole Bld Glucose (70 - 100) mg/dL Glycated Hemoglobin (4.6-6.2) % Estim Average Glucose (70-100) Calcium 7.9 L (8.5-10.3) mg/dL Total Bilirubin 1.1 H (0.2-1.0) mg/dL AST 61 H (10-42) IU/L ALT 50 (10-60) IU/L Alkaline Phosphatase 21 L (42-121) IU/L B-Natriuretic Peptide (5-100) pg/mL Total Protein 4.6 L (6.7-8.2) g/dL Albumin 2.7 L (3.2-5.5) g/dL Globulin 1.9 L (2.1-4.2) g/dL Albumin/Globulin Ratio 1.4 (1.0-2.2) Blood Type A POSITIVE Antibody Screen NEGATIVE Crossmatch IS Only See Detail 06/06/17 06/06/17 06/06/17 Range/Units 18:01 18:01 15:18 WBC (4.8-10.8) x10^3/uL RBC (4.20-5.40) 10^6/uL Hgb 11.8 L (12.0-16.0) g/dL Hct 35.8 L (37.0-47.0) % MCV (81.0-99.0) fL MCH (27.0-31.0) pg MCHC (32.0-36.0) g/dL RDW (12.0-15.0) % Plt Count (130-450) 10^3/uL MPV (7.9-10.8) fL Neut # (1.5-6.6) 10^3/uL Lymph # (1.5-3.5) 10^3/uL Jerauld # (0.0-1.0) 10^3/uL Eos # (0.0-0.7) 10^3/uL Baso # (0.0-0.1) 10^3/uL Absolute Nucleated RBC x10^3/uL Nucleated RBC % /100WBC Sodium (135-145) mmol/L Potassium (3.5-5.0) mmol/L Chloride (101-111) mmol/L Carbon Dioxide (21-32) mmol/L Anion Gap (6-13) BUN (6-20) mg/dL Creatinine (0.4-1.0) mg/dL Estimated GFR (MDRD) (>89) Glucose (70-100) mg/dL POC Whole Bld Glucose 220 H (70 - 100) mg/dL Glycated Hemoglobin (4.6-6.2) % Estim Average Glucose (70-100) Calcium (8.5-10.3) mg/dL Total Bilirubin (0.2-1.0) mg/dL AST (10-42) IU/L ALT (10-60) IU/L Alkaline Phosphatase (42-121) IU/L B-Natriuretic Peptide 10 (5-100) pg/mL Total Protein (6.7-8.2) g/dL Albumin (3.2-5.5) g/dL Globulin (2.1-4.2) g/dL Albumin/Globulin Ratio (1.0-2.2) Blood Type Antibody Screen Crossmatch IS Only 06/06/17 06/06/17 06/06/17 Range/Units 15:18 15:18 14:15 WBC 17.5 H (4.8-10.8) x10^3/uL RBC 3.35 L (4.20-5.40) 10^6/uL Hgb 9.2 L (12.0-16.0) g/dL Hct 28.1 L (37.0-47.0) % MCV 83.8 (81.0-99.0) fL MCH 27.4 (27.0-31.0) pg MCHC 32.7 (32.0-36.0) g/dL RDW 14.8 (12.0-15.0) % Plt Count 257 (130-450) 10^3/uL MPV 8.1 (7.9-10.8) fL Neut # (1.5-6.6) 10^3/uL Lymph # (1.5-3.5) 10^3/uL Jerauld # (0.0-1.0) 10^3/uL Eos # (0.0-0.7) 10^3/uL Baso # (0.0-0.1) 10^3/uL Absolute Nucleated RBC x10^3/uL Nucleated RBC % /100WBC Sodium 137 (135-145) mmol/L Potassium 3.2 L (3.5-5.0) mmol/L Chloride 104 (101-111) mmol/L Carbon Dioxide 21 (21-32) mmol/L Anion Gap 12.0 (6-13) BUN 16 (6-20) mg/dL Creatinine 0.6 (0.4-1.0) mg/dL Estimated GFR (MDRD) 105 (>89) Glucose 269 H (70-100) mg/dL POC Whole Bld Glucose 283 H (70 - 100) mg/dL Glycated Hemoglobin (4.6-6.2) % Estim Average Glucose (70-100) Calcium 7.6 L (8.5-10.3) mg/dL Total Bilirubin (0.2-1.0) mg/dL AST (10-42) IU/L ALT (10-60) IU/L Alkaline Phosphatase (42-121) IU/L B-Natriuretic Peptide (5-100) pg/mL Total Protein (6.7-8.2) g/dL Albumin (3.2-5.5) g/dL Globulin (2.1-4.2) g/dL Albumin/Globulin Ratio (1.0-2.2) Blood Type Antibody Screen Crossmatch IS Only 06/06/17 06/04/17 06/04/17 Range/Units 14:05 12:39 12:39 WBC 15.0 H (4.8-10.8) x10^3/uL RBC 2.31 L (4.20-5.40) 10^6/uL Hgb 6.1 L* (12.0-16.0) g/dL Hct 18.7 L* (37.0-47.0) % MCV 81.0 (81.0-99.0) fL MCH 26.5 L (27.0-31.0) pg MCHC 32.7 (32.0-36.0) g/dL RDW 13.6 (12.0-15.0) % Plt Count 265 (130-450) 10^3/uL MPV 7.9 (7.9-10.8) fL Neut # 11.8 H (1.5-6.6) 10^3/uL Lymph # 2.1 (1.5-3.5) 10^3/uL Jerauld # 1.0 (0.0-1.0) 10^3/uL Eos # 0.0 (0.0-0.7) 10^3/uL Baso # 0.0 (0.0-0.1) 10^3/uL Absolute Nucleated RBC 0.00 x10^3/uL Nucleated RBC % 0.0 /100WBC Sodium (135-145) mmol/L Potassium (3.5-5.0) mmol/L Chloride (101-111) mmol/L Carbon Dioxide (21-32) mmol/L Anion Gap (6-13) BUN (6-20) mg/dL Creatinine (0.4-1.0) mg/dL Estimated GFR (MDRD) (>89) Glucose (70-100) mg/dL POC Whole Bld Glucose (70 - 100) mg/dL Glycated Hemoglobin (4.6-6.2) % Estim Average Glucose (70-100) Calcium (8.5-10.3) mg/dL Total Bilirubin (0.2-1.0) mg/dL AST (10-42) IU/L ALT (10-60) IU/L Alkaline Phosphatase (42-121) IU/L B-Natriuretic Peptide (5-100) pg/mL Total Protein (6.7-8.2) g/dL Albumin (3.2-5.5) g/dL Globulin (2.1-4.2) g/dL Albumin/Globulin Ratio (1.0-2.2) Blood Type Cancelled A POSITIVE Antibody Screen Cancelled NEGATIVE Crossmatch IS Only See Detail See Detail - Current Medications Current Medications: Current Medications Generic Name Dose Route Start Last Admin Trade Name Freq PRN Reason Stop Dose Admin Famotidine 20 mg 06/06/17 21:00 06/07/17 08:47 Pepcid PO 20 mg BID DOMINGA Administration Lactated Ringer's 1,000 mls @ 100 mls/hr 06/06/17 15:00 06/07/17 12:11 Lr IV 100 mls/hr .Q10H DOMINGA Infusion Norepinephrine Bitartrate 8 mg 250 mls @ 15 mls/hr 06/06/17 18:00 06/06/17 19 :12 / Dextrose IV Not Given .[id number] Protocol 8 MCG/MIN Acetaminophen 100 mls @ 400 mls/hr 06/06/17 19:33 06/06/17 20:10 Ofirmev IV Infused Q6HR PRN Infusion PAIN Ceftriaxone Sodium 1 gm/ 100 mls @ 200 mls/hr 06/06/17 21:00 06/07/17 09:24 Sodium Chloride IV Infused DAILY DOMINGA Infusion Insulin Aspart 1 - 9 unit 06/06/17 21:00 06/07/17 12:24 Novolog SUBQ 1 unit 0800,1200,1700,2100 DOMINGA Administration Protocol Morphine Sulfate 2 mg 06/06/17 14:13 06/07/17 11:33 Morphine IVP 2 mg Q2H PRN Administration Pain 8 to 10 Oxycodone HCl 5 mg 06/06/17 14:13 06/07/17 08:46 Roxicodone PO 5 mg Q4HR PRN Administration Pain 5 to 7 Polyethylene Glycol 17 gm 06/07/17 09:00 06/07/17 08:47 Miralax PO 17 gm DAILY DOMINGA Administration Sodium Chloride 10 ml 06/06/17 22:00 06/07/17 06:46 Normal Saline Flush 0.9% IVP 10 ml Q8HR DOMINGA Administration Exam - Exam Vital Signs: Vital Signs (72 hours) 06/06/17 06/06/17 06/06/17 06:38 14:00 14:05 Temperature 97.5 F L Heart Rate [ 70 Apical] Respiratory 18 Rate Blood Pressure 155/70 H [Left] Blood Pressure [Right Brachial artery] O2 Saturation 99 100 100 06/06/17 06/06/17 06/06/17 14:10 14:15 14:25 Temperature Heart Rate [ Apical] Respiratory Rate Blood Pressure [Left] Blood Pressure [Right Brachial artery] O2 Saturation 100 100 100 06/06/17 06/06/17 06/06/17 14:30 14:40 14:45 Temperature Heart Rate [ Apical] Respiratory Rate Blood Pressure [Left] Blood Pressure [Right Brachial artery] O2 Saturation 100 100 100 06/06/17 06/06/17 06/06/17 14:50 15:00 15:05 Temperature Heart Rate [ Apical] Respiratory Rate Blood Pressure [Left] Blood Pressure [Right Brachial artery] O2 Saturation 100 100 100 06/06/17 06/06/17 06/06/17 15:15 15:20 15:30 Temperature Heart Rate [ Apical] Respiratory Rate Blood Pressure [Left] Blood Pressure [Right Brachial artery] O2 Saturation 100 100 100 1006/06/17 06/06/17 15:45 15:58 16:30 Temperature 96.8 F L Heart Rate [ 103 H Apical] Respiratory 18 Rate Blood Pressure [Left] Blood Pressure 85/54 L [Right Brachial artery] O2 Saturation 100 100 97 06/06/17 06/06/17 06/06/17 16:47 17:00 17:22 Temperature 97.7 F 97.7 F Heart Rate [ 99 104 H 96 Apical] Respiratory 18 Rate Blood Pressure [Left] Blood Pressure 92/54 L 95/56 L 94/55 L [Right Brachial artery] O2 Saturation 99 97 06/06/17 06/06/17 06/06/17 17:36 17:40 17:45 Temperature Heart Rate [ 94 96 91 Apical] Respiratory 22 22 24 Rate Blood Pressure [Left] Blood Pressure 87/60 L 91/57 L 96/56 L [Right Brachial artery] O2 Saturation 98 98 98 06/06/17 06/06/17 06/06/17 18:00 18:15 19:00 Temperature 203 F H Heart Rate [ 96 87 87 Apical] Respiratory 23 24 22 Rate Blood Pressure [Left] Blood Pressure 91/59 L 94/54 L 102/62 [Right Brachial artery] O2 Saturation 98 98 98 06/06/17 06/06/17 06/06/17 20:00 21:00 22:00 Temperature 205.9 F H Heart Rate [ 83 77 81 Apical] Respiratory 24 20 23 Rate Blood Pressure [Left] Blood Pressure 103/59 L 104/59 L 104/59 L [Right Brachial artery] O2 Saturation 99 99 99 06/06/17 06/07/17 06/07/17 23:00 00:00 00:57 Temperature 97.9 F Heart Rate [ 66 74 74 Apical] Respiratory 22 18 19 Rate Blood Pressure [Left] Blood Pressure 111/56 L 115/58 L 124/64 [Right Brachial artery] O2 Saturation 100 99 99 06/07/17 06/07/17 06/07/17 02:00 03:00 04:00 Temperature 205.5 F H Heart Rate [ 75 73 77 Apical] Respiratory 19 20 18 Rate Blood Pressure [Left] Blood Pressure 118/53 L 122/51 L 118/52 L [Right Brachial artery] O2 Saturation 99 98 98 06/07/17 06/07/17 06/07/17 05:00 06:00 06:50 Temperature Heart Rate [ 80 83 84 Apical] Respiratory 24 20 21 Rate Blood Pressure [Left] Blood Pressure 119/56 L 108/52 L 113/49 L [Right Brachial artery] O2 Saturation 97 99 98 06/07/17 06/07/17 06/07/17 07:59 09:00 10:00 Temperature 99.7 F H Heart Rate [ 83 88 91 Apical] Respiratory 22 25 H 23 Rate Blood Pressure [Left] Blood Pressure 119/54 L 123/47 L 121/55 L [Right Brachial artery] O2 Saturation 95 97 96 06/07/17 06/07/17 11:00 12:00 Temperature Heart Rate [ 93 97 Apical] Respiratory 23 21 Rate Blood Pressure [Left] Blood Pressure 128/54 L 124/53 L [Right Brachial artery] O2 Saturation 97 95 General: Oriented x3, Cooperative, Mild distress (Uncomfortable, wants to sleep) HEENT: EOMI, Mucous membr. moist/pink, Other (mild periorbital edama) Lungs: Clear to auscultation Cardiovascular: Regular rate, Normal S1, No murmurs Abdomen: Other (Tender abdomen 2/3, mild distension, & rare bowel sounds) Extremities: No tenderness/swelling, Other Skin: No rashes, No breakdown Neurological: Normal tone, Sensation intact Assessment/Plan - Assessment/Plan Assessment: Patient improved since postop. Pressure remains stable. Uncertain if she experienced post op bleeding in addition to 800cc EBL intraop. DM and hyperglycemia being managed w sliding scale. Will closely watch her clinical course and CBC. Will discuss w hospitalist.
[2017-06-07 12:33] LABS: HGB - HEMOGLOBIN 8.1 g/dL (12.0-16.0)
[2017-06-07] MEDS ORDERED: ALPRAZolam 0.25 MG TABLET PO PRN (15:45)
[2017-06-07] MEDS ORDERED: diphenhydrAMINE 25 MG CAPSULE PO PRN (15:46)
[2017-06-07] MEDS: diphenhydrAMINE 25 MG CAPSULE PO PRN ×2 (16:07→20:15)
[2017-06-07] MEDS ORDERED: SODIUM CHLORIDE 0.9% 250 ML IV ONE (16:11)
--- NOTE | 2017-06-07 20:47 | PROVIDER PROGRESS NOTE ---
Assessment/Plan - Problem List (1) Status post total hysterectomy Assessment/Plan: day 2 for a large intramural leiomyoma (2) Hypotension Assessment/Plan: has resolved (3) Hypokalemia Assessment/Plan: has resolved (4) Asthma Assessment/Plan: no exacerbations during this hospitalization (5) Diabetes mellitus Qualifiers: Diabetes mellitus type: type 2 Assessment/Plan: on sliding scale insulin before meals and finger stick blood sugars are controlled (6) Post-op bleeding Assessment/Plan: received 2 units of blood post-op and Hb/ Hct will continue to be monitored. She will get a cbc in am. She will need ferrous sulfate for her iron deficiency anemia. - Current Meds Current Meds: Current Medications Generic Name Dose Route Start Last Admin Trade Name Freq PRN Reason Stop Dose Admin Alprazolam 0.25 mg 06/07/17 15:45 06/07/17 16:07 Xanax PO 0.25 mg Q6HR PRN Administration Anxiety Diphenhydramine HCl 25 mg 06/06/17 14:33 06/07/17 20:15 Benadryl PO 25 mg Q4HR PRN Administration Allergy Symptoms Famotidine 20 mg 06/06/17 21:00 06/07/17 20:15 Pepcid PO 20 mg BID DOMINGA Administration Lactated Ringer's 1,000 mls @ 100 mls/hr 06/06/17 15:00 06/07/17 16:15 Lr IV 0 mls/hr .Q10H DOMINGA Infusion Acetaminophen 100 mls @ 400 mls/hr 06/06/17 19:33 06/06/17 20:10 Ofirmev IV Infused Q6HR PRN Infusion PAIN Ceftriaxone Sodium 1 gm/ 100 mls @ 200 mls/hr 06/06/17 21:00 06/07/17 09:24 Sodium Chloride IV Infused DAILY DOMINGA Infusion Insulin Aspart 1 - 9 unit 06/06/17 21:00 06/07/17 17:15 Novolog SUBQ 1 unit 0800,1200,1700,2100 DOMINGA Administration Protocol Morphine Sulfate 2 mg 06/06/17 14:13 06/07/17 14:10 Morphine IVP 2 mg Q2H PRN Administration Pain 8 to 10 Oxycodone HCl 5 mg 06/06/17 14:13 06/07/17 18:17 Roxicodone PO 5 mg Q4HR PRN Administration Pain 5 to 7 Polyethylene Glycol 17 gm 06/07/17 09:00 06/07/17 08:47 Miralax PO 17 gm DAILY DOMINGA Administration Sodium Chloride 10 ml 06/06/17 22:00 06/07/17 14:10 Normal Saline Flush 0.9% IVP 10 ml Q8HR DOMINGA Administration - Lab Result Fish Bone Diagrams: 06/07/17 12:20 06/07/17 04:42 - Additional Planning My Orders: My Active Orders 06/06/17 21:00 [email or web address] [Rocephin] 1 gm Sodium Chloride 0.9% Minibag [Normal Saline 0.9% Minibag] 100 ml IV DAILY 06/06/17 23:42 Blood Culture [CULTURE, BLOOD #1] [] Urgent 06/06/17 23:50 Blood Culture [CULTURE, BLOOD #2] [] Urgent Subjective - Subjective Patient Reports: Feeling Better, Other (She is still having pelvic pain after the surgery. She also complains of back pain.) Objective Vital Signs: Vital Signs - 24 hr 06/06/17 06/06/17 06/06/17 21:00 22:00 23:00 Temperature Heart Rate [ 77 81 66 Apical] Respiratory 20 23 22 Rate Blood Pressure 104/59 L 104/59 L 111/56 L [Right Brachial artery] O2 Saturation 99 99 100 06/07/17 06/07/17 06/07/17 00:00 00:57 02:00 Temperature 36.6 C Heart Rate [ 74 74 75 Apical] Respiratory 18 19 19 Rate Blood Pressure 115/58 L 124/64 118/53 L [Right Brachial artery] O2 Saturation 99 99 99 06/07/17 06/07/17 06/07/17 03:00 04:00 05:00 Temperature 96.4 C H Heart Rate [ 73 77 80 Apical] Respiratory 20 18 24 Rate Blood Pressure 122/51 L 118/52 L 119/56 L [Right Brachial artery] O2 Saturation 98 98 97 06/07/17 06/07/17 06/07/17 06:00 06:50 07:59 Temperature 37.6 C H Heart Rate [ 83 84 83 Apical] Respiratory 20 21 22 Rate Blood Pressure 108/52 L 113/49 L 119/54 L [Right Brachial artery] O2 Saturation 99 98 95 06/07/17 06/07/17 06/07/17 09:00 10:00 11:00 Temperature Heart Rate [ 88 91 93 Apical] Respiratory 25 H 23 23 Rate Blood Pressure 123/47 L 121/55 L 128/54 L [Right Brachial artery] O2 Saturation 97 96 97 06/07/17 06/07/17 06/07/17 12:00 13:00 14:00 Temperature Heart Rate [ 97 94 92 Apical] Respiratory 21 20 22 Rate Blood Pressure 124/53 L 132/73 H 97/83 H [Right Brachial artery] O2 Saturation 95 97 96 06/07/17 06/07/17 06/07/17 15:00 16:00 17:00 Temperature 37.4 C 37.6 C H Heart Rate [ 95 93 Apical] Respiratory 20 20 20 Rate Blood Pressure 120/50 L 129/41 L 115/54 L [Right Brachial artery] O2 Saturation 97 95 94 06/07/17 06/07/17 06/07/17 18:00 19:00 20:00 Temperature 37.7 C H 38.3 C H 39.1 C H Heart Rate [ 104 H 101 H 106 H Apical] Respiratory 21 21 20 Rate Blood Pressure 119/64 126/60 124/64 [Right Brachial artery] O2 Saturation 96 96 95 06/07/17 20:29 Temperature 39.0 C H Heart Rate [ Apical] Respiratory Rate Blood Pressure [Right Brachial artery] O2 Saturation Oxygen O2 Source Room air I&O (Last 24 Hrs): Intake and Output Totals x24h 06/05/17 06/06/17 06/07/17 23:59 23:59 23:59 Intake Total 200 3195.333 Output Total 1200 2685 Balance -1000 510.333 General: Alert, Oriented x3, Cooperative HEENT: Atraumatic, PERRLA Neck: Supple, No JVD Neuro: Alert Cardiovascular: Regular rate, Normal S1, Normal S2 Respiratory: Chest non-tender, No respiratory distress, Breath sounds nml Abdomen: Other (She has hypoactive bowel sounds) Genitourinary: Other (pelvic tenderness) Extremities: No clubbing, No cyanosis, No edema - Results Results: Laboratory Results WBC 10.5 x10^3/uL (4.8-10.8) 06/07/17 04:42 RBC 3.45 10^6/uL (4.20-5.40) L 06/07/17 04:42 Hgb 8.1 g/dL (12.0-16.0) L 06/07/17 12:20 Hct 24.0 % (37.0-47.0) L 06/07/17 12:20 MCV 82.5 fL (81.0-99.0) 06/07/17 04:42 MCH 27.9 pg (27.0-31.0) 06/07/17 04:42 MCHC 33.8 g/dL (32.0-36.0) 06/07/17 04:42 RDW 14.7 % (12.0-15.0) 06/07/17 04:42 Plt Count 188 10^3/uL (130-450) 06/07/17 04:42 MPV 8.7 fL (7.9-10.8) 06/07/17 04:42 Neut # 8.0 10^3/uL (1.5-6.6) H 06/07/17 04:42 Lymph # 1.7 10^3/uL (1.5-3.5) 06/07/17 04:42 [place] # 0.8 10^3/uL (0.0-1.0) 06/07/17 04:42 Eos # 0.0 10^3/uL (0.0-0.7) 06/07/17 04:42 Baso # 0.0 10^3/uL (0.0-0.1) 06/07/17 04:42 Absolute Nucleated RBC 0.00 x10^3/uL 06/07/17 04:42 Nucleated RBC % 0.0 /100WBC 06/07/17 04:42 Sodium 137 mmol/L (135-145) 06/07/17 04:42 Potassium 4.0 mmol/L (3.5-5.0) 06/07/17 04:42 Chloride 103 mmol/L (101-111) 06/07/17 04:42 Carbon Dioxide 26 mmol/L (21-32) 06/07/17 04:42 Anion Gap 8.0 (6-13) 06/07/17 04:42 BUN 10 mg/dL (6-20) 06/07/17 04:42 Creatinine 0.4 mg/dL (0.4-1.0) 06/07/17 04:42 Estimated GFR (MDRD) 168 (>89) 06/07/17 04:42 Glucose 153 mg/dL (70-100) H 06/07/17 04:42 POC Whole Bld Glucose 179 mg/dL (70 - 100) H 06/07/17 17:09 Glycated Hemoglobin 6.4 % (4.6-6.2) H 06/06/17 20:37 Estim Average Glucose 137 (70-100) H 06/06/17 20:37 Calcium 7.8 mg/dL (8.5-10.3) L 06/07/17 04:42 Total Bilirubin 0.4 mg/dL (0.2-1.0) 06/07/17 04:42 AST 69 IU/L (10-42) H 06/07/17 04:42 ALT 77 IU/L (10-60) H 06/07/17 04:42 Alkaline Phosphatase 24 IU/L (42-121) L 06/07/17 04:42 B-Natriuretic Peptide 10 pg/mL (5-100) 06/06/17 15:18 Total Protein 4.7 g/dL (6.7-8.2) L 06/07/17 04:42 Albumin 2.7 g/dL (3.2-5.5) L 06/07/17 04:42 Globulin 2.0 g/dL (2.1-4.2) L 06/07/17 04:42 Albumin/Globulin Ratio 1.4 (1.0-2.2) 06/07/17 04:42 Ur Specific [place] 1.025 (1.002-1.030) 06/06/17 06:40 Urine HCG, Qual NEGATIVE 06/06/17 06:40 Blood Type A POSITIVE 06/06/17 20:37 Antibody Screen NEGATIVE 06/06/17 20:37 Crossmatch IS Only See Detail 06/06/17 20:37 - Procedures Procedures: Procedures COLONOSCOPY (09/10/14) ESOPHAGOGASTRODUODENOSCOPY [EGD] W/CLOSED BIOPSY (04/03/13)
[2017-06-07] MEDS: ACETAMINOPHEN 1,000 MG/100 ML 100 ML IV PRN (20:53)
[2017-06-08] MEDS: oxyCODONE 5 MG TABLET PO PRN ×5 (01:38→20:20)
[2017-06-08] MEDS: metroNIDAZOLE 250 MG TABLET PO SCH ×3 (02:52→22:01)
[2017-06-08] MEDS: ACETAMINOPHEN 1,000 MG/100 ML 100 ML IV PRN ×2 (04:08→12:19)
[2017-06-08 05:19] LABS: BASOPHILS % (AUTO) 0.3 %; EOSINOPHILS % (AUTO) 0.2 %; HCT - HEMATOCRIT 30.9 % (37.0-47.0); HGB - HEMOGLOBIN 10.6 g/dL (12.0-16.0); LYMPHOCYTES # (AUTO) 1.5 10^3/uL (1.5-3.5); LYMPHOCYTES % (AUTO) 15.5 %; MEAN CORPUSCULAR HEMOGLOBIN 28.1 pg (27.0-31.0); MEAN CORPUSCULAR HGB CONC 34.4 g/dL (32.0-36.0); MEAN CORPUSCULAR VOLUME 81.8 fL (81.0-99.0); MONOCYTES # (AUTO) 0.8 10^3/uL (0.0-1.0); MONOCYTES % (AUTO) 8.9 %; NEUTROPHILS % (AUTO) 75.1 %; RED BLOOD COUNT 3.78 10^6/uL (4.20-5.40); RED CELL DISTRIBUTION WIDTH 14.4 % (12.0-15.0); UNCORRECTED WHITE BLOOD COUNT 9.4 x10^3/uL; WHITE BLOOD COUNT 9.4 x10^3/uL (4.8-10.8)
[2017-06-08] MEDS: SODIUM CHLORIDE FLUSH 0.9% 10 ML SYRINGE IVP SCH ×3 (05:31→22:01)
[2017-06-08] MEDS: LACTATED RINGERS 1,000 ML IV SCH (05:31)
[2017-06-08 05:35] LABS: BILIRUBIN,TOTAL 0.8 mg/dL (0.2-1.0); CALCIUM 8.1 mg/dL (8.5-10.3); CREATININE 0.5 mg/dL (0.4-1.0); POTASSIUM 3.4 mmol/L (3.5-5.0); TOTAL PROTEIN 5.1 g/dL (6.7-8.2)
[2017-06-08] MEDS ORDERED: POTASSIUM CHLORIDE 20 MEQ TABLET PO ONE (08:15)
[2017-06-08] MEDS: INSULIN ASPART 300 UNIT/3 ML PEN SUBQ SCH ×4 (08:31→20:43)
[2017-06-08] MEDS: cefTRIAXone 1 GM in SODIUM CHLORIDE 0.9% MINIBAG 100 ML IV SCH (08:34)
[2017-06-08] MEDS: FAMOTIDINE 20 MG TABLET PO SCH ×2 (08:34→20:20)
[2017-06-08] MEDS: POLYETHYLENE GLYCOL 3350 17 GM PACKET PO SCH (08:35)
[2017-06-08] MEDS: SODIUM CHLORIDE FLUSH 0.9% 10 ML SYRINGE IVP PRN (09:23)
--- NOTE | 2017-06-08 11:29 | PROVIDER PROGRESS NOTE ---
Subjective - General Admit Date: 06/06/17 Procedure Date: 06/06/17 Post Op Days: 2 Procedure Performed: GASPER, Myomectomy, cysto, laparoscopy - Review of Systems Wound/Incisions: positive: Healing well, Other (Bandage dry and intact with vacuum functional) Drain Type: Horowitz To be discontinued this morning Drain Output Description: Clear General: positive: Weakness, Fatigue, Other (Mild orthostatic dizziness. Patient able to ambulate short distances) HEENT: positive: No symptoms, Other (Mild periorbital edema, Lessened from yesterday) Pulmonary: positive: No symptoms Cardiovascular: positive: No symptoms, Other (No chest pain reported) Gastrointestinal: positive: Abdominal pain (Diffuse abdominal pain lessened compared to yesterday; Appropriate for laparotomy), Flatus (Passing gas but no bowel movement) Genitourinary: positive: No symptoms, Other (No discharge or bleeding, will pull vaginal pack today with Horowitz) Musculoskeletal: positive: Shoulder pain (Bursitis R), Back pain (Chronic back pain) Skin: positive: No symptoms Neurological: Psychiatric: positive: Anxiety, Other (Patient feels better, better mood) Objective - Patient Data Vital Signs: Vital Signs x48h Temp Pulse Resp BP Pulse Ox 06/08/17 11:00 84 20 147/72 H 98 06/08/17 10:00 86 18 98 06/08/17 09:00 86 16 129/65 98 06/08/17 08:00 210.0 F H 89 16 115/67 97 06/08/17 06:48 96 19 126/58 L 97 06/08/17 06:00 100 18 118/62 95 06/08/17 05:00 98.4 F 93 18 127/67 94 06/08/17 04:00 88 18 145/72 H 94 Weight: Weight 06/06/17 06/07/17 06/08/17 23:59 23:59 23:59 Weight (kg) 64 kg Intake & Output: Intake and Output Totals x24h 06/06/17 06/07/17 06/08/17 23:59 23:59 23:59 Intake Total 200 3713.666 1651.667 Output Total 1200 3885 3420 Balance -1000 -171.334 -1768.333 - Lab Results Lab Results: 06/08/17 04:56 06/08/17 04:56 Other Lab Results: Lab Results x24hrs 06/08/17 06/08/17 06/08/17 Range/Units 07:33 04:56 04:56 WBC 9.4 (4.8-10.8) x10^3/uL RBC 3.78 L (4.20-5.40) 10^6/uL Hgb 10.6 L (12.0-16.0) g/dL Hct 30.9 L (37.0-47.0) % MCV 81.8 (81.0-99.0) fL MCH 28.1 (27.0-31.0) pg MCHC 34.4 (32.0-36.0) g/dL RDW 14.4 (12.0-15.0) % Plt Count 150 (130-450) 10^3/uL MPV 8.0 (7.9-10.8) fL Neut # 7.0 H (1.5-6.6) 10^3/uL Lymph # 1.5 (1.5-3.5) 10^3/uL [place] # 0.8 (0.0-1.0) 10^3/uL Eos # 0.0 (0.0-0.7) 10^3/uL Baso # 0.0 (0.0-0.1) 10^3/uL Absolute Nucleated RBC 0.00 x10^3/uL Nucleated RBC % 0.0 /100WBC Sodium 137 (135-145) mmol/L Potassium 3.4 L (3.5-5.0) mmol/L Chloride 103 (101-111) mmol/L Carbon Dioxide 28 (21-32) mmol/L Anion Gap 6.0 (6-13) BUN 6 (6-20) mg/dL Creatinine 0.5 (0.4-1.0) mg/dL Estimated GFR (MDRD) 130 (>89) Glucose 156 H (70-100) mg/dL POC Whole Bld Glucose 177 H (70 - 100) mg/dL Calcium 8.1 L (8.5-10.3) mg/dL Total Bilirubin 0.8 (0.2-1.0) mg/dL AST 32 (10-42) IU/L ALT 52 (10-60) IU/L Alkaline Phosphatase 29 L (42-121) IU/L Total Protein 5.1 L (6.7-8.2) g/dL Albumin 2.6 L (3.2-5.5) g/dL Globulin 2.5 (2.1-4.2) g/dL Albumin/Globulin Ratio 1.0 (1.0-2.2) Blood Type Antibody Screen Crossmatch IS Only 06/07/17 06/07/17 06/07/17 Range/Units 21:20 17:09 12:20 WBC (4.8-10.8) x10^3/uL RBC (4.20-5.40) 10^6/uL Hgb (12.0-16.0) g/dL Hct (37.0-47.0) % MCV (81.0-99.0) fL MCH (27.0-31.0) pg MCHC (32.0-36.0) g/dL RDW (12.0-15.0) % Plt Count (130-450) 10^3/uL MPV (7.9-10.8) fL Neut # (1.5-6.6) 10^3/uL Lymph # (1.5-3.5) 10^3/uL [place] # (0.0-1.0) 10^3/uL Eos # (0.0-0.7) 10^3/uL Baso # (0.0-0.1) 10^3/uL Absolute Nucleated RBC x10^3/uL Nucleated RBC % /100WBC Sodium (135-145) mmol/L Potassium (3.5-5.0) mmol/L Chloride (101-111) mmol/L Carbon Dioxide (21-32) mmol/L Anion Gap (6-13) BUN (6-20) mg/dL Creatinine (0.4-1.0) mg/dL Estimated GFR (MDRD) (>89) Glucose (70-100) mg/dL POC Whole Bld Glucose 175 H 179 H 166 H (70 - 100) mg/dL Calcium (8.5-10.3) mg/dL Total Bilirubin (0.2-1.0) mg/dL AST (10-42) IU/L ALT (10-60) IU/L Alkaline Phosphatase (42-121) IU/L Total Protein (6.7-8.2) g/dL Albumin (3.2-5.5) g/dL Globulin (2.1-4.2) g/dL Albumin/Globulin Ratio (1.0-2.2) Blood Type Antibody Screen Crossmatch IS Only 06/07/17 06/06/17 06/04/17 Range/Units 12:20 20:37 12:39 WBC (4.8-10.8) x10^3/uL RBC (4.20-5.40) 10^6/uL Hgb 8.1 L (12.0-16.0) g/dL Hct 24.0 L (37.0-47.0) % MCV (81.0-99.0) fL MCH (27.0-31.0) pg MCHC (32.0-36.0) g/dL RDW (12.0-15.0) % Plt Count (130-450) 10^3/uL MPV (7.9-10.8) fL Neut # (1.5-6.6) 10^3/uL Lymph # (1.5-3.5) 10^3/uL [place] # (0.0-1.0) 10^3/uL Eos # (0.0-0.7) 10^3/uL Baso # (0.0-0.1) 10^3/uL Absolute Nucleated RBC x10^3/uL Nucleated RBC % /100WBC Sodium (135-145) mmol/L Potassium (3.5-5.0) mmol/L Chloride (101-111) mmol/L Carbon Dioxide (21-32) mmol/L Anion Gap (6-13) BUN (6-20) mg/dL Creatinine (0.4-1.0) mg/dL Estimated GFR (MDRD) (>89) Glucose (70-100) mg/dL POC Whole Bld Glucose (70 - 100) mg/dL Calcium (8.5-10.3) mg/dL Total Bilirubin (0.2-1.0) mg/dL AST (10-42) IU/L ALT (10-60) IU/L Alkaline Phosphatase (42-121) IU/L Total Protein (6.7-8.2) g/dL Albumin (3.2-5.5) g/dL Globulin (2.1-4.2) g/dL Albumin/Globulin Ratio (1.0-2.2) Blood Type A POSITIVE A POSITIVE Antibody Screen NEGATIVE NEGATIVE Crossmatch IS Only See Detail See Detail - Current Medications Current Medications: Current Medications Generic Name Dose Route Start Last Admin Trade Name Freq PRN Reason Stop Dose Admin Alprazolam 0.25 mg 06/07/17 15:45 06/07/17 16:07 Xanax PO 0.25 mg Q6HR PRN Administration Anxiety Diphenhydramine HCl 25 mg 06/06/17 14:33 06/07/17 20:15 Benadryl PO 25 mg Q4HR PRN Administration Allergy Symptoms Famotidine 20 mg 06/06/17 21:00 06/08/17 08:34 Pepcid PO 20 mg BID DOMINGA Administration Acetaminophen 100 mls @ 400 mls/hr 06/06/17 19:33 06/08/17 04:28 Ofirmev IV Infused Q6HR PRN Infusion PAIN Ceftriaxone Sodium 1 gm/ 100 mls @ 200 mls/hr 06/06/17 21:00 06/08/17 09:25 Sodium Chloride IV Infused DAILY DOMINGA Infusion Insulin Aspart 1 - 9 unit 06/06/17 21:00 06/08/17 08:31 Novolog SUBQ 1 unit 0800,1200,1700,2100 DOMINGA Administration Protocol Metronidazole 500 mg 06/08/17 03:00 06/08/17 02:52 Flagyl PO 500 mg Q8HR DOMINGA Administration Morphine Sulfate 2 mg 06/06/17 14:13 06/07/17 14:10 Morphine IVP 2 mg Q2H PRN Administration Pain 8 to 10 Oxycodone HCl 5 mg 06/06/17 14:13 06/08/17 08:35 Roxicodone PO 5 mg Q4HR PRN Administration Pain 5 to 7 Polyethylene Glycol 17 gm 06/07/17 09:00 06/08/17 08:35 Miralax PO 17 gm DAILY DOMINGA Administration Sodium Chloride 10 ml 06/06/17 14:13 06/08/17 09:23 Normal Saline Flush 0.9% IVP 10 ml PRN PRN Administration NEEDED PER PROVIDER ORDERS Sodium Chloride 10 ml 06/06/17 22:00 06/08/17 05:31 Normal Saline Flush 0.9% IVP 10 ml Q8HR DOMINGA Administration Exam - Exam Vital Signs: Vital Signs (72 hours) 06/06/17 06/06/17 06/06/17 06:38 14:00 14:05 Temperature 97.5 F L Heart Rate [ 70 Apical] Respiratory 18 Rate Blood Pressure 155/70 H [Left] Blood Pressure [Right Brachial artery] O2 Saturation 99 100 100 06/06/17 06/06/17 06/06/17 14:10 14:15 14:25 Temperature Heart Rate [ Apical] Respiratory Rate Blood Pressure [Left] Blood Pressure [Right Brachial artery] O2 Saturation 100 100 100 06/06/17 06/06/17 06/06/17 14:30 14:40 14:45 Temperature Heart Rate [ Apical] Respiratory Rate Blood Pressure [Left] Blood Pressure [Right Brachial artery] O2 Saturation 100 100 100 06/06/17 06/06/17 06/06/17 14:50 15:00 15:05 Temperature Heart Rate [ Apical] Respiratory Rate Blood Pressure [Left] Blood Pressure [Right Brachial artery] O2 Saturation 100 100 100 06/06/17 06/06/17 06/06/17 15:15 15:20 15:30 Temperature Heart Rate [ Apical] Respiratory Rate Blood Pressure [Left] Blood Pressure [Right Brachial artery] O2 Saturation 100 100 100 06/06/17 06/06/17 06/06/17 15:45 15:58 16:30 Temperature 96.8 F L Heart Rate [ 103 H Apical] Respiratory 18 Rate Blood Pressure [Left] Blood Pressure 85/54 L [Right Brachial artery] O2 Saturation 100 100 97 06/06/17 06/06/17 06/06/17 16:47 17:00 17:22 Temperature 97.7 F 97.7 F Heart Rate [ 99 104 H 96 Apical] Respiratory 18 Rate Blood Pressure [Left] Blood Pressure 92/54 L 95/56 L 94/55 L [Right Brachial artery] O2 Saturation 99 97 06/06/17 06/06/17 06/06/17 17:36 17:40 17:45 Temperature Heart Rate [ 94 96 91 Apical] Respiratory 22 22 24 Rate Blood Pressure [Left] Blood Pressure 87/60 L 91/57 L 96/56 L [Right Brachial artery] O2 Saturation 98 98 98 06/06/17 06/06/17 06/06/17 18:00 18:15 19:00 Temperature 203 F H Heart Rate [ 96 87 87 Apical] Respiratory 23 24 22 Rate Blood Pressure [Left] Blood Pressure 91/59 L 94/54 L 102/62 [Right Brachial artery] O2 Saturation 98 98 98 06/06/17 06/06/17 06/06/17 20:00 21:00 22:00 Temperature 205.9 F H Heart Rate [ 83 77 81 Apical] Respiratory 24 20 23 Rate Blood Pressure [Left] Blood Pressure 103/59 L 104/59 L 104/59 L [Right Brachial artery] O2 Saturation 99 99 99 06/06/17 06/07/17 06/07/17 23:00 00:00 00:57 Temperature 97.9 F Heart Rate [ 66 74 74 Apical] Respiratory 22 18 19 Rate Blood Pressure [Left] Blood Pressure 111/56 L 115/58 L 124/64 [Right Brachial artery] O2 Saturation 100 99 99 06/07/17 06/07/17 06/07/17 02:00 03:00 04:00 Temperature 205.5 F H Heart Rate [ 75 73 77 Apical] Respiratory 19 20 18 Rate Blood Pressure [Left] Blood Pressure 118/53 L 122/51 L 118/52 L [Right Brachial artery] O2 Saturation 99 98 98 06/07/17 06/07/17 06/07/17 05:00 06:00 06:50 Temperature Heart Rate [ 80 83 84 Apical] Respiratory 24 20 21 Rate Blood Pressure [Left] Blood Pressure 119/56 L 108/52 L 113/49 L [Right Brachial artery] O2 Saturation 97 99 98 06/07/17 06/07/17 06/07/17 07:59 09:00 10:00 Temperature 99.7 F H Heart Rate [ 83 88 91 Apical] Respiratory 22 25 H 23 Rate Blood Pressure [Left] Blood Pressure 119/54 L 123/47 L 121/55 L [Right Brachial artery] O2 Saturation 95 97 96 06/07/17 06/07/17 06/07/17 11:00 12:00 13:00 Temperature Heart Rate [ 93 97 94 Apical] Respiratory 23 21 20 Rate Blood Pressure [Left] Blood Pressure 128/54 L 124/53 L 132/73 H [Right Brachial artery] O2 Saturation 97 95 97 06/07/17 06/07/17 06/07/17 14:00 15:00 16:00 Temperature 99.4 F Heart Rate [ 92 95 Apical] Respiratory 22 20 20 Rate Blood Pressure [Left] Blood Pressure 97/83 H 120/50 L 129/41 L [Right Brachial artery] O2 Saturation 96 97 95 06/07/17 06/07/17 06/07/17 17:00 18:00 19:00 Temperature 99.7 F H 100 F H 100.9 F H Heart Rate [ 93 104 H 101 H Apical] Respiratory 20 21 21 Rate Blood Pressure [Left] Blood Pressure 115/54 L 119/64 126/60 [Right Brachial artery] O2 Saturation 94 96 96 06/07/17 06/07/17 06/07/17 20:00 20:29 21:00 Temperature 102.4 F H 102.2 F H Heart Rate [ 106 H 106 H Apical] Respiratory 20 22 Rate Blood Pressure [Left] Blood Pressure 124/64 124/65 [Right Brachial artery] O2 Saturation 95 93 06/07/17 06/07/17 06/07/17 21:22 22:00 22:30 Temperature 100.4 F H 99.9 F H 98.6 F Heart Rate [ 102 H Apical] Respiratory 18 Rate Blood Pressure [Left] Blood Pressure 115/62 [Right Brachial artery] O2 Saturation 93 06/07/17 06/07/17 06/08/17 23:00 23:38 00:00 Temperature 99.4 F 98.2 F 98.2 F Heart Rate [ 103 H 97 Apical] Respiratory 17 18 Rate Blood Pressure [Left] Blood Pressure 108/60 115/62 [Right Brachial artery] O2 Saturation 94 93 06/08/17 06/08/17 06/08/17 01:00 02:00 02:56 Temperature 98.9 F 98.2 F Heart Rate [ 93 95 93 Apical] Respiratory 17 19 18 Rate Blood Pressure [Left] Blood Pressure 111/66 128/74 123/61 [Right Brachial artery] O2 Saturation 94 95 94 06/08/17 06/08/17 06/08/17 04:00 05:00 06:00 Temperature 98.4 F Heart Rate [ 88 93 100 Apical] Respiratory 18 18 18 Rate Blood Pressure [Left] Blood Pressure 145/72 H 127/67 118/62 [Right Brachial artery] O2 Saturation 94 94 95 06/08/17 06/08/17 06/08/17 06:48 08:00 09:00 Temperature 210.0 F H Heart Rate [ 96 89 86 Apical] Respiratory 19 16 16 Rate Blood Pressure [Left] Blood Pressure 126/58 L 115/67 129/65 [Right Brachial artery] O2 Saturation 97 97 98 06/08/17 06/08/17 10:00 11:00 Temperature Heart Rate [ 86 84 Apical] Respiratory 18 20 Rate Blood Pressure [Left] Blood Pressure 147/72 H [Right Brachial artery] O2 Saturation 98 98 General: Oriented x3, Cooperative HEENT: EOMI, Mucous membr. moist/pink, Other (No JVD) Lungs: Clear to auscultation, Other (Air movement could be better) Cardiovascular: Regular rate, Normal S1, Other (Grade 2/6 systolic ejection murmur) Extremities: Normal pulses, Other (Hands and feet warm) Skin: No rashes Neurological: Sensation intact, Other (Still diffusely weak) Psych/Mental Status: Mental status NL, Mood NL (Patient's mood is rallying) Assessment/Plan - Assessment/Plan Assessment: Postsurgical recovery: * Patient is made steady improvement since yesterday. Cardiovascular status stable. Yesterday, there was a gradual yet steady decline in hemoglobin indicative of postoperative blood loss. IV fluid resuscitation did not account for the degree of Hemoglobin drop. She underwent a second transfusion of 2 units PRBCs in the afternoon. 2 more units of PRBC remaining in reserve. Clinically patient is improving and tolerating her anemia. GI function is returning. No increase in abdominal bloat and suspect that the postop bleeding event has resolved. Pain adequately controlled. * Diabetes is relatively controlled with sliding scale. Stress of surgery has elicited a large cortisol response. Perfect blood glucose control at this point is not expected. Reevaluation of diabetes treatment strategy may be necessary as an outpatient. * Asthma inactive * Chronic back pain should respond to Motrin and massage Plan: * Transfer to a standard medical / surgical bed. * Increase activity today, Physical therapy consulted to help with ambulation * Discontinue Horowitz * Pull vaginal packing * Continue IV Rocephin and oral Flagyl * Hep-Lock IV fluids * Advance to regular diet gradually, As tolerated * Continue telemetry * Repeat CBC in the morning * Will discuss case with brandyn Castellanos. * Discussed plan with ICU nursing
[2017-06-08] MEDS ORDERED: SENNA 8.6 MG TABLET PO PRN (14:45)
--- NOTE | 2017-06-08 20:45 | PROVIDER PROGRESS NOTE ---
Assessment/Plan - Problem List (1) Status post total hysterectomy Assessment/Plan: day 3 for a large intramumural leiomyoma (2) Hypotension Assessment/Plan: has resolved (3) Hypokalemia Assessment/Plan: has resolved (4) Asthma Assessment/Plan: no exacerbations during this hospitalization (5) Diabetes mellitus Qualifiers: Diabetes mellitus type: type 2 Assessment/Plan: on sliding scale insulin before meals (6) Post-op bleeding Assessment/Plan: stabilized and on ferrous sulfate - Current Meds Current Meds: Current Medications Generic Name Dose Route Start Last Admin Trade Name Freq PRN Reason Stop Dose Admin Alprazolam 0.25 mg 06/07/17 15:45 06/07/17 16:07 Xanax PO 0.25 mg Q6HR PRN Administration Anxiety Diphenhydramine HCl 25 mg 06/06/17 14:33 06/07/17 20:15 Benadryl PO 25 mg Q4HR PRN Administration Allergy Symptoms Famotidine 20 mg 06/06/17 21:00 06/08/17 20:20 Pepcid PO 20 mg BID DOMINGA Administration Acetaminophen 100 mls @ 400 mls/hr 06/06/17 19:33 06/08/17 13:01 Ofirmev IV Infused Q6HR PRN Infusion PAIN Ceftriaxone Sodium 1 gm/ 100 mls @ 200 mls/hr 06/06/17 21:00 06/08/17 09:25 Sodium Chloride IV Infused DAILY DOMINGA Infusion Insulin Aspart 1 - 9 unit 06/06/17 21:00 06/08/17 17:14 Novolog SUBQ 1 unit 0800,1200,1700,2100 DOMINGA Administration Protocol Metronidazole 500 mg 06/08/17 03:00 06/08/17 12:19 Flagyl PO 500 mg Q8HR DOMINGA Administration Morphine Sulfate 2 mg 06/06/17 14:13 06/07/17 14:10 Morphine IVP 2 mg Q2H PRN Administration Pain 8 to 10 Oxycodone HCl 5 mg 06/06/17 14:13 06/08/17 20:20 Roxicodone PO 5 mg Q4HR PRN Administration Pain 5 to 7 Polyethylene Glycol 17 gm 06/07/17 09:00 06/08/17 08:35 Miralax PO 17 gm DAILY DOMINGA Administration Senna 8.6 mg 06/08/17 14:45 06/08/17 16:11 Senokot PO 8.6 mg DAILY PRN Administration Constipation Sodium Chloride 10 ml 06/06/17 14:13 06/08/17 09:23 Normal Saline Flush 0.9% IVP 10 ml PRN PRN Administration NEEDED PER PROVIDER ORDERS Sodium Chloride 10 ml 06/06/17 22:00 06/08/17 13:03 Normal Saline Flush 0.9% IVP 10 ml Q8HR DOMINGA Administration - Lab Result Lab results reviewed: Yes Fish Bone Diagrams: 06/08/17 04:56 06/08/17 04:56 - Additional Planning Condition/Complexity: Improved (The patient is eating and is more alert today.) My Orders: My Active Orders 06/08/17 Evaluate and Treat PT [PT] Routine 06/08/17 07:13 Message to Rehab [RC] QSHIFT Subjective - Subjective Patient Reports: Feeling Better (She is still having pelvic pain and back pain.) , Back Pain, Pain (pelvic pain) Objective Vital Signs: Vital Signs - 24 hr 06/07/17 06/07/17 06/07/17 21:00 21:22 22:00 Temperature 38.0 C H 37.7 C H Heart Rate [ 106 H 102 H Apical] Heart Rate [ Brachial] Respiratory 22 18 Rate Blood Pressure [Activity] Blood Pressure 124/65 115/62 [Right Brachial artery] Blood Pressure [Supine] O2 Saturation 93 93 06/07/17 06/07/17 06/07/17 22:30 23:00 23:38 Temperature 37.0 C 37.4 C 36.8 C Heart Rate [ 103 H Apical] Heart Rate [ Brachial] Respiratory 17 Rate Blood Pressure [Activity] Blood Pressure 108/60 [Right Brachial artery] Blood Pressure [Supine] O2 Saturation 94 06/08/17 06/08/17 06/08/17 00:00 01:00 02:00 Temperature 36.8 C 37.2 C Heart Rate [ 97 93 95 Apical] Heart Rate [ Brachial] Respiratory 18 17 19 Rate Blood Pressure [Activity] Blood Pressure 115/62 111/66 128/74 [Right Brachial artery] Blood Pressure [Supine] O2 Saturation 93 94 95 06/08/17 06/08/17 06/08/17 02:56 04:00 05:00 Temperature 36.8 C 36.9 C Heart Rate [ 93 88 93 Apical] Heart Rate [ Brachial] Respiratory 18 18 18 Rate Blood Pressure [Activity] Blood Pressure 123/61 145/72 H 127/67 [Right Brachial artery] Blood Pressure [Supine] O2 Saturation 94 94 94 06/08/17 06/08/17 06/08/17 06:00 06:48 08:00 Temperature 37.2 C Heart Rate [ 100 96 89 Apical] Heart Rate [ Brachial] Respiratory 18 19 16 Rate Blood Pressure [Activity] Blood Pressure 118/62 126/58 L 115/67 [Right Brachial artery] Blood Pressure [Supine] O2 Saturation 95 97 97 06/08/17 06/08/17 06/08/17 09:00 10:00 11:00 Temperature Heart Rate [ 86 86 84 Apical] Heart Rate [ Brachial] Respiratory 16 18 20 Rate Blood Pressure 153/70 H [Activity] Blood Pressure 129/65 147/72 H [Right Brachial artery] Blood Pressure 147/72 H [Supine] O2 Saturation 98 98 98 06/08/17 06/08/17 06/08/17 12:00 13:00 15:38 Temperature 37.3 C 36.8 C Heart Rate [ 81 82 78 Apical] Heart Rate [ Brachial] Respiratory 18 22 16 Rate Blood Pressure [Activity] Blood Pressure 141/70 H 123/58 L 133/62 H [Right Brachial artery] Blood Pressure [Supine] O2 Saturation 98 96 96 06/08/17 20:11 Temperature 37.2 C Heart Rate [ Apical] Heart Rate [ 83 Brachial] Respiratory 20 Rate Blood Pressure [Activity] Blood Pressure 148/61 H [Right Brachial artery] Blood Pressure [Supine] O2 Saturation 97 Oxygen O2 Source Room air I&O (Last 24 Hrs): Intake and Output Totals x24h 06/06/17 06/07/17 06/08/17 23:59 23:59 23:59 Intake Total 200 3713.666 2431.667 Output Total 1200 3885 3720 Balance -1000 -171.334 -1288.333 General: Alert, Oriented x3, Cooperative HEENT: Atraumatic Neck: Supple, No JVD Neuro: Alert, CN 2-12 Grossly Intact, Oriented Times 3 Cardiovascular: Regular rate, Normal S1, Normal S2 Respiratory: Chest non-tender, No respiratory distress, Breath sounds nml Abdomen: Normal bowel sounds, Soft (tender over the pelvis), Other Extremities: No edema - Results Results: Laboratory Results WBC 9.4 x10^3/uL (4.8-10.8) 06/08/17 04:56 RBC 3.78 10^6/uL (4.20-5.40) L 06/08/17 04:56 Hgb 10.6 g/dL (12.0-16.0) L 06/08/17 04:56 Hct 30.9 % (37.0-47.0) L 06/08/17 04:56 MCV 81.8 fL (81.0-99.0) 06/08/17 04:56 MCH 28.1 pg (27.0-31.0) 06/08/17 04:56 MCHC 34.4 g/dL (32.0-36.0) 06/08/17 04:56 RDW 14.4 % (12.0-15.0) 06/08/17 04:56 Plt Count 150 10^3/uL (130-450) 06/08/17 04:56 MPV 8.0 fL (7.9-10.8) 06/08/17 04:56 Neut # 7.0 10^3/uL (1.5-6.6) H 06/08/17 04:56 Lymph # 1.5 10^3/uL (1.5-3.5) 06/08/17 04:56 [place] # 0.8 10^3/uL (0.0-1.0) 06/08/17 04:56 Eos # 0.0 10^3/uL (0.0-0.7) 06/08/17 04:56 Baso # 0.0 10^3/uL (0.0-0.1) 06/08/17 04:56 Absolute Nucleated RBC 0.00 x10^3/uL 06/08/17 04:56 Nucleated RBC % 0.0 /100WBC 06/08/17 04:56 Sodium 137 mmol/L (135-145) 06/08/17 04:56 Potassium 3.4 mmol/L (3.5-5.0) L 06/08/17 04:56 Chloride 103 mmol/L (101-111) 06/08/17 04:56 Carbon Dioxide 28 mmol/L (21-32) 06/08/17 04:56 Anion Gap 6.0 (6-13) 06/08/17 04:56 BUN 6 mg/dL (6-20) 06/08/17 04:56 Creatinine 0.5 mg/dL (0.4-1.0) 06/08/17 04:56 Estimated GFR (MDRD) 130 (>89) 06/08/17 04:56 Glucose 156 mg/dL (70-100) H 06/08/17 04:56 POC Whole Bld Glucose 139 mg/dL (70 - 100) H 06/08/17 20:40 Glycated Hemoglobin 6.4 % (4.6-6.2) H 06/06/17 20:37 Estim Average Glucose 137 (70-100) H 06/06/17 20:37 Calcium 8.1 mg/dL (8.5-10.3) L 06/08/17 04:56 Total Bilirubin 0.8 mg/dL (0.2-1.0) 06/08/17 04:56 AST 32 IU/L (10-42) 06/08/17 04:56 ALT 52 IU/L (10-60) 06/08/17 04:56 Alkaline Phosphatase 29 IU/L (42-121) L 06/08/17 04:56 B-Natriuretic Peptide 10 pg/mL (5-100) 06/06/17 15:18 Total Protein 5.1 g/dL (6.7-8.2) L 06/08/17 04:56 Albumin 2.6 g/dL (3.2-5.5) L 06/08/17 04:56 Globulin 2.5 g/dL (2.1-4.2) 06/08/17 04:56 Albumin/Globulin Ratio 1.0 (1.0-2.2) 06/08/17 04:56 Ur Specific [place] 1.025 (1.002-1.030) 06/06/17 06:40 Urine HCG, Qual NEGATIVE 06/06/17 06:40 Blood Type A POSITIVE 06/06/17 20:37 Antibody Screen NEGATIVE 06/06/17 20:37 Crossmatch IS Only See Detail 06/06/17 20:37 - Procedures Procedures: Procedures COLONOSCOPY (09/10/14) ESOPHAGOGASTRODUODENOSCOPY [EGD] W/CLOSED BIOPSY (04/03/13)
[2017-06-09] MEDS: oxyCODONE 5 MG TABLET PO PRN ×3 (00:21→11:06)
[2017-06-09] MEDS ORDERED: SODIUM CHLORIDE FLUSH 0.9% 10 ML SYRINGE IVP ONE (05:26)
[2017-06-09] MEDS: metroNIDAZOLE 250 MG TABLET PO SCH (05:26)
[2017-06-09 05:50] LABS: BASOPHILS % (AUTO) 0.4 %; EOSINOPHILS # (AUTO) 0.1 10^3/uL (0.0-0.7); EOSINOPHILS % (AUTO) 1.6 %; HCT - HEMATOCRIT 30.5 % (37.0-47.0); HGB - HEMOGLOBIN 10.4 g/dL (12.0-16.0); LYMPHOCYTES # (AUTO) 1.6 10^3/uL (1.5-3.5); LYMPHOCYTES % (AUTO) 22.1 %; MEAN CORPUSCULAR HEMOGLOBIN 28.1 pg (27.0-31.0); MEAN CORPUSCULAR HGB CONC 33.9 g/dL (32.0-36.0); MEAN PLATELET VOLUME 9.4 fL (7.9-10.8); MONOCYTES # (AUTO) 0.6 10^3/uL (0.0-1.0); MONOCYTES % (AUTO) 7.9 %; NEUTROPHILS # (AUTO) 4.9 10^3/uL (1.5-6.6); RED BLOOD COUNT 3.68 10^6/uL (4.20-5.40); RED CELL DISTRIBUTION WIDTH 14.6 % (12.0-15.0); UNCORRECTED WHITE BLOOD COUNT 7.2 x10^3/uL; WHITE BLOOD COUNT 7.2 x10^3/uL (4.8-10.8)
[2017-06-09 06:32] LABS: CALCIUM 8.2 mg/dL (8.5-10.3); CREATININE 0.5 mg/dL (0.4-1.0); POTASSIUM 3.6 mmol/L (3.5-5.0)
[2017-06-09] MEDS: SODIUM CHLORIDE FLUSH 0.9% 10 ML SYRINGE IVP SCH (06:37)
[2017-06-09 07:01] LABS: PLATELET MORPHOLOGY NORMAL APPEARANCE (NORMAL)
[2017-06-09 08:04] VITALS: BP 144/65
[2017-06-09] MEDS ORDERED: ALBUTEROL NEB 2.5 MG/3 ML INH PRN (08:54)
--- NOTE | 2017-06-09 08:57 | Discharge Plan ---
Discharge Plan Disposition: Home, Self Care Condition: Stable Diet: Diabetic Activity Restrictions: Activity as Tolerated Shower Restrictions: No Driving Restrictions: Yes (until after first office visit with leather grader) Assistance Devices: Walker Weight Bearing: Partial Weight Additional Instructions or Follow Up instructions: Follow-up with Dr. Buchanan this coming Sunday-call his office for appt Report fever, chills, or vaginal bleeding Follow up with PCP this coming week No Smoking: If you smoke, Please STOP! Call for help. Follow-up with: Brendon Barbosa MD [Primary Care Provider] -
[2017-06-09] MEDS ORDERED: CALCIUM CARBONATE CHEW 500 MG TABLET PO SCH (09:00)
[2017-06-09] MEDS ORDERED: ASPIRIN EC 81 MG TABLET PO SCH (09:00)
[2017-06-09] MEDS ORDERED: LISINOPRIL 20 MG TABLET PO SCH (09:00)
[2017-06-09] MEDS: INSULIN ASPART 300 UNIT/3 ML PEN SUBQ SCH (09:08)
[2017-06-09] MEDS: SODIUM CHLORIDE FLUSH 0.9% 10 ML SYRINGE IVP PRN (09:09)
[2017-06-09] MEDS: POLYETHYLENE GLYCOL 3350 17 GM PACKET PO SCH (09:09)
[2017-06-09] MEDS: cefTRIAXone 1 GM in SODIUM CHLORIDE 0.9% MINIBAG 100 ML IV SCH (09:10)
[2017-06-09] MEDS: FAMOTIDINE 20 MG TABLET PO SCH (09:10)
[2017-06-09] MEDS ORDERED: metFORMIN 500 MG TABLET PO SCH (10:00)
--- NOTE | 2017-06-10 07:22 | DISCHARGE SUMMARY ---
DATE OF ADMISSION: 06/06/2017 DATE OF DISCHARGE: 06/09/2017 DIAGNOSES 1. Large intramural leiomyoma w several mid size leiomyoma, 20 wk Size Uterus. 2. Associated abdominopelvic pain. 3. Type 2 diabetes. 4. Hypertension. 5. Asthma. 6. Gastroesophageal reflux disease. PROCEDURES: Laparoscopic-assisted hysterectomy converted to total abdominal hysterectomy, myomectomy bulking of the uterus, cystoscopy, extensive adenolysis. COMPLICATIONS: None. HISTORY OF PRESENT ILLNESS: The patient is a 51-year-old Hebrew primiparous patient who was referred for evaluation and treatment of large myomatous uterus. Ultrasound documented expansion of the myomas and second readings confirmed that there were no vascular changes suggestive of sarcoma. Clinical examination finds the pelvis and lower abdominal cavity to be filled with the myomatous uterus. Physical examination could not locate the patient's cervix due to the degree of distortion in the cul-de-sac secondary to myomas. Uterine size prompted MRI that showed extensive distortion of the uterus with rotation and deflection to the left. There were smaller fibroids in the region of the lower segment and cervix that raised concerns about displacement and malposition of ureters and major vessels. Reference typewritten H and P. The patient had significant medical problems inclusive of diabetes, asthma, hyperlipidemia. The patient reported ovarian cystectomy, and it was not clear which side, left or right. HOSPITAL COURSE: The patient was admitted. The MRI that was done on Sunday became available for review with Radiology, Dr. Watts, on Sunday. The degree of size and distortion was remarkable. Prior to the procedure, there was a family conference called. The results of the MRI were reviewed and opinion was given that this would be a difficult surgery and a second option of preoperative embolization of the fibroids were offered to reduce operative difficulty and chances of hemorrhage and/or damage to urinary tract or bowel. After appropriate amount of time was given for the patient and her family member (a nurse practitioners) to discuss these options, the patient decided that her pain was too great to wait and she strongly desired the uterus removed today. It was explained to her that abdominal hysterectomy via laparotomy would be needed. Laparoscopy would be conducted with the hopes of isolating and desiccating the uterine vessels prior to the abdominal phase of the case. The patient was taken to surgery under general anesthesia. The uterus was again confirmed to be large and there was not a great deal of mobility or space in pelvic side carranza. Laparoscopy was begun with the hopes of accessing the uterine vessels and desiccating them, thereby to reduce intraoperative blood loss. Dissection on the left was thwarted by bleeding from the fibroid itself and this prompted conversion to total abdominal hysterectomy. Myomectomy was necessary to access the uterine vessels and cul-de-sac. Overall anatomy was very distorted and the right ovary and tube were surgically absent. Reference type written operative note. Postoperatively, the patient experienced hypotension in the recovery room and tachycardia. She was given 2 units of packed red blood cells. Total blood loss was 800 with 4700 of crystalloid given. Her hemoglobin and blood pressure improved, and she was taken to the medical/surgical floor. On the floor, hypotension continued and hospitalist consult was done by Dr. Ivy. There were concerns about possible failure due to cardiac failure, and she was moved to an ICU bed. Failure was ruled out by BPN and her pressures began to improve. There was mild hypokalemia that was corrected with K-riders. She was placed on sliding scale for blood glucose control. After recovery room transfusion, we began tracking H/H in a serial fashion. Her recovery room H/H was 6.1 and it yulia post-transfusion to 11.8. However, there was a gradual decline to 8.1. This prompted a second transfusion of 2 packed red blood cells. The patient improved clinically. Postoperative bleeding event was suspected. However, clinically there were no signs of increased bleeding and her hemoglobin stayed steady. On postoperative day #3, hemoglobin stabilized at 11.4. She spiked a temp of 102 F and Rocephin IVPB started. Blood Cultures were negative for growth. Clinically, the patient continued to improve: ambulating with assistance, bathing and taking solid nutrition. She did report dizziness, but this was felt due to her chronic vertigo. By postoperative day #3, the patient was doing well and desired discharge. She had a bowel movement prior to discharge. Complete discharge instructions were given including monitoring for fever, syncope, excessive abdominal pain or vaginal bleeding. The patient's nieces are RNs and intend to stay with the patient / for the first week. She was encouraged strongly to continue walking and a prescription for a walker was arranged. She was to use incentive tanmay at home. MEDICATIONS 1. Albuterol 1-2 puffs q.4 hours p.r.n. asthma. 2. Mini dose Aspirin. 3. Ancef 250 mg t.i.d. for a 7-day course. 4. Flagyl 500 b.i.d. for a 7-day course. 5. Metformin. 6. Glyburide. 7. Motrin 600 q.6 hours scheduled pain. 8. Cameron 3/325 p.r.n. breakthrough pain. Followup visit will be in 1 week to remove wound VAC and to monitor improvement. The patient is instructed to see her PCP in 1-2 weeks for diabetes control. JOB #: [id number] EXT JOB #:[id number] ERMIAS
== END 2017-06-09 11:50 | disposition home or self-care (01) | DRG 743 ==
LOC: UNDOADMIN 06:02 → MS2 06:02 → ICU 06:02 → MS3 06-08 11:54
PROVIDERS: ADMIT Obstetrics & Gynecology; ATTEND Obstetrics & Gynecology
PROC: 0W3G4ZZ Control Bleeding in Peritoneal Cavity, Percutaneous Endoscopic Approach (ICD-10-PCS; 2017-06-06)
PROC: 0TJB8ZZ Inspection of Bladder, Via Natural or Artificial Opening Endoscopic (ICD-10-PCS; 2017-06-06)
PROC: 0UT90ZZ Resection of Uterus, Open Approach (ICD-10-PCS; principal; 2017-06-06 07:30)
PROC: 30233N1 Transfusion of Nonautologous Red Blood Cells into Peripheral Vein, Percutaneous Approach (ICD-10-PCS; 2017-06-07)
DX: D25.1 Intramural leiomyoma of uterus (principal); D50.0 Iron deficiency anemia secondary to blood loss (chronic); E87.6 Hypokalemia; R50.82 Postprocedural fever; I95.9 Hypotension, unspecified; R00.0 Tachycardia, unspecified; N73.6 Female pelvic peritoneal adhesions (postinfective); E11.9 Type 2 diabetes mellitus without complications; I10 Essential (primary) hypertension; J45.909 Unspecified asthma, uncomplicated; K21.9 Gastro-esophageal reflux disease without esophagitis; N92.0 Excessive and frequent menstruation with regular cycle; E78.5 Hyperlipidemia, unspecified; R42 Dizziness and giddiness; M54.5 Low back pain; G89.29 Other chronic pain; M75.51 Bursitis of right shoulder; Z79.82 Long term (current) use of aspirin; Z79.84 Long term (current) use of oral hypoglycemic drugs; Z90.79 Acquired absence of other genital organ(s); Z90.721 Acquired absence of ovaries, unilateral; Z53.31 Laparoscopic surgical procedure converted to open procedure
CPT/HCPCS: 36415; 74000; 80048; 80053; 81025; 83036; 83880; 85014; 85018; 85025; 86850; 86900; 86901; 86920; 87040; 87150; 88307; 93306; J1170

== ENCOUNTER 2017-11-05 07:51 | Outpatient (CLI) | payer MEDICAID ==
[2017-11-05 12:57] LABS: CALCIUM 9.3 mg/dL (8.5-10.3); CREATININE 0.5 mg/dL (0.4-1.0)
[2017-11-05 13:33] LABS: HB2 TOTAL 14.6 g/dL; HEMOGLOBIN A1C 0.79 g/dL; HEMOGLOBIN A1C % 7.1 % (4.6-6.2)
== END 2017-11-05 23:59 ==
LOC: LAB.N 07:51
PROVIDERS: ATTEND Family Medicine
DX: E11.9 Type 2 diabetes mellitus without complications (principal)
CPT/HCPCS: 36415; 80048; 83036

== ENCOUNTER 2018-02-06 07:56 | Outpatient (CLI) | payer MEDICAID ==
[2018-02-06 13:38] LABS: CALCIUM 9.2 mg/dL (8.5-10.3); CREATININE 0.4 mg/dL (0.4-1.0)
[2018-02-06 13:59] LABS: HB2 TOTAL 13.9 g/dL; HEMOGLOBIN A1C 0.71 g/dL; HEMOGLOBIN A1C % 6.8 % (4.6-6.2)
== END 2018-02-06 07:57 | disposition home or self-care (01) ==
LOC: LAB.N 07:56
PROVIDERS: ATTEND Family Medicine
DX: E11.9 Type 2 diabetes mellitus without complications (principal)
CPT/HCPCS: 36415; 80048; 83036

== ENCOUNTER → 2018-03-19 | Outpatient (CLI) | payer MEDICAID | LOC: RT.N 08:42 | PROVIDERS: ATTEND Family Medicine | DX: I49.9 Cardiac arrhythmia, unspecified (principal) | CPT/HCPCS: 93005 ==

== ENCOUNTER → 2018-06-21 | Outpatient (CLI) | payer MEDICAID ==
[2018-06-21 13:24] LABS: CALCIUM 9.2 mg/dL (8.5-10.3); CREATININE 0.5 mg/dL (0.4-1.0)
[2018-06-21 14:12] LABS: HB2 TOTAL 14.1 g/dL; HEMOGLOBIN A1C 0.85 g/dL; HEMOGLOBIN A1C % 7.7 % (4.6-6.2)
== END ==
LOC: LAB.N 08:00
PROVIDERS: ATTEND Family Medicine
DX: I10 Essential (primary) hypertension (principal); E11.9 Type 2 diabetes mellitus without complications
CPT/HCPCS: 36415; 80048; 83036

== ENCOUNTER 2018-10-29 08:00 | Outpatient (CLI) | payer MEDICAID ==
[2018-10-29 14:36] LABS: BASOPHILS % (AUTO) 0.5 %; EOSINOPHILS # (AUTO) 0.1 10^3/uL (0.0-0.7); EOSINOPHILS % (AUTO) 2.5 %; HGB - HEMOGLOBIN 13.4 g/dL (12.0-16.0); LYMPHOCYTES # (AUTO) 1.8 10^3/uL (1.5-3.5); LYMPHOCYTES % (AUTO) 41.8 %; MEAN CORPUSCULAR HGB CONC 33.7 g/dL (32.0-36.0); MEAN CORPUSCULAR VOLUME 80.1 fL (81.0-99.0); MEAN PLATELET VOLUME 8.8 fL (7.9-10.8); MONOCYTES # (AUTO) 0.3 10^3/uL (0.0-1.0); MONOCYTES % (AUTO) 7.5 %; NEUTROPHILS % (AUTO) 47.7 %; PLT - PLATELET COUNT 353 10^3/uL (130-450); RED BLOOD COUNT 4.98 10^6/uL (4.20-5.40); RED CELL DISTRIBUTION WIDTH 13.3 % (12.0-15.0); WHITE BLOOD COUNT 4.3 x10^3/uL (4.8-10.8)
[2018-10-29 17:04] LABS: ALBUMIN 4.6 g/dL (3.2-5.5); ALBUMIN/GLOBULIN RATIO 1.4 (1.0-2.2); ALKALINE PHOSPHATASE 55 IU/L (42-121); ALT ALANINE AMINOTRANSFERASE 36 IU/L (10-60); AST ASPARTATE AMINOTRANSFERASE 24 IU/L (10-42); BILIRUBIN,TOTAL 0.9 mg/dL (0.2-1.0); BUN - BLOOD UREA NITROGEN 14 mg/dL (6-20); CALCIUM 9.7 mg/dL (8.5-10.3); CARBON DIOXIDE - CO2 28 mmol/L (21-32); CHLORIDE 101 mmol/L (101-111); CHOLESTEROL 283 mg/dL; CREATININE 0.5 mg/dL (0.4-1.0); GFR - MDRD 129 (>89); GLUCOSE 151 mg/dL (70-100); HDL CHOLESTEROL 70 mg/dL; LDL CHOLESTEROL,CALCULATED 198 mg/dL; LDL/HDL RATIO 2.8 (<4.4); SODIUM 139 mmol/L (135-145); TOTAL PROTEIN 7.8 g/dL (6.7-8.2); VLDL CHOLESTEROL 15 mg/dL
[2018-10-29 19:31] LABS: HB2 TOTAL 14.8 g/dL
[2018-10-29 21:11] LABS: HEMOGLOBIN A1C 0.84 g/dL; HEMOGLOBIN A1C % 7.3 % (4.6-6.2)
== END 2018-10-29 23:59 | disposition home or self-care (01) ==
LOC: LAB.N 08:00
PROVIDERS: ATTEND Nurse Practitioner Gerontology
DX: I10 Essential (primary) hypertension (principal); E78.5 Hyperlipidemia, unspecified; E11.9 Type 2 diabetes mellitus without complications
CPT/HCPCS: 36415; 80053; 80061; 83036; 83721; 85025

== ENCOUNTER 2019-08-22 09:02 | Outpatient (CLI) | payer MEDICAID | END 2019-08-22 23:59 | disposition home or self-care (01) | LOC: LAB.N 09:02 | PROVIDERS: ATTEND Nurse Practitioner Gerontology | DX: Z83.49 Family history of other endocrine, nutritional and metabolic diseases (principal) | CPT/HCPCS: 36415; 84443 ==

== ENCOUNTER 2019-12-25 12:18 | Outpatient (CLI) | payer MEDICAID ==
--- NOTE | 2019-12-26 03:33 | Ultrasound Report ---
Reason: LLQ ABDOMINAL PAIN Procedure Date: 12/25/2019 Accession Number: [id number] / [id number] Procedure: US - Pelvic Limited or F/U CPT Code: Final Report FULL RESULT: EXAM: SOFT TISSUE ULTRASOUND FOR HERNIA EXAM DATE: 12/25/2019 12:31 PM. CLINICAL HISTORY: LLQ ABDOMINAL PAIN. COMPARISON: None. TECHNIQUE: Real-time sonographic imaging of the left lower quadrant tissues, including color-flow, was performed by the special forces communications sergeant. Multiple employment program representative static images were saved for review. FINDINGS: Hernia: None identified with or without Valsalva. Soft Tissues: Normal. No fluid collections or adenopathy. Other: None. IMPRESSION: Normal. No hernia or other abnormality evident. RADIA
== END 2019-12-25 12:19 | disposition home or self-care (01) ==
LOC: DI 12:18
PROVIDERS: ATTEND Nurse Practitioner
DX: R10.9 Unspecified abdominal pain (principal)
CPT/HCPCS: 76857

== ENCOUNTER 2020-07-05 09:11 | Outpatient (CLI) | payer MEDICAID ==
[2020-07-05 12:52] LABS: BASOPHILS % (AUTO) 0.7 %; EOSINOPHILS # (AUTO) 0.1 10^3/uL (0.0-0.7); EOSINOPHILS % (AUTO) 1.7 %; HGB - HEMOGLOBIN 13.6 g/dL (12.0-16.0); LYMPHOCYTES # (AUTO) 1.9 10^3/uL (1.5-3.5); LYMPHOCYTES % (AUTO) 46.7 %; MEAN CORPUSCULAR HEMOGLOBIN 27.3 pg (27.0-31.0); MEAN CORPUSCULAR HGB CONC 32.2 g/dL (32.0-36.0); MEAN CORPUSCULAR VOLUME 84.8 fL (81.0-99.0); MEAN PLATELET VOLUME 10.6 fL (7.9-10.8); MONOCYTES # (AUTO) 0.3 10^3/uL (0.0-1.0); MONOCYTES % (AUTO) 8.4 %; NEUTROPHILS # (AUTO) 1.7 10^3/uL (1.5-6.6); NEUTROPHILS % (AUTO) 42.3 %; PLT - PLATELET COUNT 344 10^3/uL (130-450); RED BLOOD COUNT 4.99 10^6/uL (4.20-5.40); RED CELL DISTRIBUTION WIDTH 12.7 % (12.0-15.0); WHITE BLOOD COUNT 4.1 x10^3/uL (4.8-10.8)
[2020-07-05 13:12] LABS: ALBUMIN 4.5 g/dL (3.2-5.5); ALBUMIN/GLOBULIN RATIO 1.5 (1.0-2.2); ALKALINE PHOSPHATASE 40 IU/L (42-121); ALT ALANINE AMINOTRANSFERASE 27 IU/L (10-60); AST ASPARTATE AMINOTRANSFERASE 21 IU/L (10-42); BUN - BLOOD UREA NITROGEN 14 mg/dL (6-20); CALCIUM 9.6 mg/dL (8.5-10.3); CARBON DIOXIDE - CO2 29 mmol/L (21-32); CHLORIDE 96 mmol/L (101-111); CHOL/HDL RATIO 2.8 (<4.4); CHOLESTEROL 190 mg/dL; CREATININE 0.4 mg/dL (0.4-1.0); GLUCOSE 146 mg/dL (70-100); HDL CHOLESTEROL 69 mg/dL; LDL CHOLESTEROL,CALCULATED 110 mg/dL; LDL/HDL RATIO 1.6 (<4.4); SODIUM 139 mmol/L (135-145); TOTAL PROTEIN 7.5 g/dL (6.7-8.2); VLDL CHOLESTEROL 11 mg/dL
[2020-07-05 13:43] LABS: CREATININE,URINE 142.9 mg/dL; MICROALBUM/CREATININE RATIO,UR 17.5 ug/mg (<30.0); MICROALBUMIN,URINE 2.5 mg/dL (0-300.0)
== END 2020-07-05 23:59 | disposition home or self-care (01) ==
LOC: LAB.WCP 09:11
PROVIDERS: ATTEND Physician Assistant
DX: I10 Essential (primary) hypertension (principal); E11.9 Type 2 diabetes mellitus without complications; E78.5 Hyperlipidemia, unspecified
CPT/HCPCS: 36415; 80053; 80061; 82043; 82570; 83036; 83721; 84443; 85025

== ENCOUNTER 2020-08-12 13:39 | Outpatient (CLI) | payer MEDICAID ==
--- NOTE | 2020-08-13 05:38 | Mammography Report ---
BILATERAL DIGITAL SCREENING MAMMOGRAM 3D/2D: 08/12/2020 CLINICAL: Routine screening. Comparison is made to exams dated: 07/24/2011 mammogram, 06/14/2010 ultrasound, 05/23/2010 ultrasound , 05/09/2010 ultrasound, 05/09/2010 mammogram, and 04/26/2010 mammogram - [facility]. There are scattered fibroglandular elements in both breasts. There is a new 0.5 cm x 0.7 cm oval equal density asymmetry with a circumscribed margin in the right breast middle depth inferior region seen on the mediolateral oblique view only. Finding is seen only on tomography. No other significant masses, calcifications, or other findings are seen in either breast. IMPRESSION: INCOMPLETE: NEEDS ADDITIONAL IMAGING EVALUATION The new 0.5 cm x 0.7 cm oval equal density asymmetry in the right breast is indeterminate. A diagnos tic mammogram and ultrasound is recommended. This exam was interpreted at Station ID: [id number]. NOTE: For mammograms, a report in lay terms will be sent to the patient. Approximately 15% of breast malignancies will not be visualized mammographically. In the management of a palpable breast mass, a negative mammogram must not discourage biopsy of a clinically suspicious lesion. Electronically Signed By: Larry Pisano acr/:08/12/2020 14:45:05 ACR BI-RADS Category 0: Incomplete 3340F PARENCHYMAL PATTERN: (A) - The breast(s) demonstrate(s) scattered fibroglandular densities. BI-RADS CATEGORY: (0) - 0 Mammo and [place] [id number] Immediate follow-up LATERALITY: (B)
== END 2020-08-12 13:40 | disposition home or self-care (01) ==
LOC: DI.N 13:39
DX: Z12.31 Encounter for screening mammogram for malignant neoplasm of breast (principal); R92.8 Other abnormal and inconclusive findings on diagnostic imaging of breast
CPT/HCPCS: 77067

== ENCOUNTER 2020-09-30 11:10 | Outpatient (CLI) | payer MEDICAID ==
--- NOTE | 2020-10-01 07:58 | Ultrasound Report ---
LIMITED ULTRASOUND OF RIGHT BREAST: 09/30/2020 CLINICAL: Patient returns today to evaluate a focal asymmetry in the right breast. Comparison is made to exams dated: 09/30/2020 mammogram, 08/12/2020 mammogram, 08/14/2016 mammogram, mammogram - [facility], and 07/24/2011 mammogram - [facility]. Real-time ultrasound of the right breast 5-6 o'clock region was performed on the area of interest. No discrete cystic or solid mass lesion identified in the area of mammographic abnormality. IMPRESSION: NEGATIVE There is no sonographic evidence of malignancy. There are no abnormalities seen in the right breast to correspond with the mammography findings at 5 and 6 o'clock. A 1 year screening mammogram is recommended. This exam was interpreted at Station ID: [id number]. Electronically Signed By: Richard Carrion M.D. ddp/:09/30/2020 12:08:53 Ultrasound BI-RADS: 1 Negative BI-RADS CATEGORY: (1) - 1 RECOMMENDATION: (ANNUAL) - Recommend routine annual screening mammography. [id number] 1 year screening LATERALITY: (B)
--- NOTE | 2020-10-01 07:58 | Mammography Report ---
UNILATERAL RIGHT DIGITAL DIAGNOSTIC MAMMOGRAM 3D/2D: 09/30/2020 CLINICAL: Patient returns today to evaluate an asymmetry in the right breast. Additional evaluation r equested from prior study. Comparison is made to exams dated: 08/12/2020 mammogram, 08/14/2016 mammogram, 12/22/2013 mammogram - [facility], 07/24/2011 mammogram, 06/14/2010 ultrasound, and 05/23/2010 ultrasound - [facility]. The tissue of right breast is heterogeneously dense. This may lower the sensiti vity of mammography. There is an oval equal density asymmetry with an indistinct and circumscribed margin in the right bianca ast middle depth inferior region seen on the mediolateral oblique view only. This is less prominent. No other significant masses or calcifications are seen in the breast. IMPRESSION: INCOMPLETE: NEEDS ADDITIONAL IMAGING EVALUATION The oval equal density asymmetry in the right breast is indeterminate. An ultrasound is recommended. Ultrasound will be performed immediately following the current exam. This exam was interpreted at Station ID: [id number]. NOTE: For mammograms, a report in lay terms will be sent to the patient. Approximately 15% of breast malignancies will not be visualized mammographically. In the management of a palpable breast mass, a negative mammogram must not discourage biopsy of a clinically suspicious lesion. Electronically Signed By: Richard Carrion M.D. ddp/:09/30/2020 11:34:42 ACR BI-RADS Category 0: Incomplete 3340F PARENCHYMAL PATTERN: (D) - The breast(s) demonstrate(s) heterogeneously dense fibroglandular kevin leiva. BI-RADS CATEGORY: (0) - 0 Ultrasound [id number] Immediate follow-up LATERALITY: (B)
== END 2020-09-30 11:11 | disposition home or self-care (01) ==
LOC: DI 11:10
PROVIDERS: ATTEND Physician Assistant Medical
DX: R92.8 Other abnormal and inconclusive findings on diagnostic imaging of breast (principal)

== ENCOUNTER 2021-05-09 08:00 | Outpatient (CLI) | payer MEDICAID ==
[2021-05-09 11:58] LABS: BASOPHILS % (AUTO) 0.6 %; EOSINOPHILS # (AUTO) 0.1 10^3/uL (0.0-0.7); EOSINOPHILS % (AUTO) 1.3 %; HCT - HEMATOCRIT 42.4 % (37.0-47.0); HGB - HEMOGLOBIN 13.3 g/dL (12.0-16.0); LYMPHOCYTES # (AUTO) 2.1 10^3/uL (1.5-3.5); LYMPHOCYTES % (AUTO) 44.2 %; MEAN CORPUSCULAR HEMOGLOBIN 26.4 pg (27.0-31.0); MEAN CORPUSCULAR HGB CONC 31.4 g/dL (32.0-36.0); MEAN CORPUSCULAR VOLUME 84.3 fL (81.0-99.0); MEAN PLATELET VOLUME 11.5 fL (7.9-10.8); MONOCYTES # (AUTO) 0.4 10^3/uL (0.0-1.0); MONOCYTES % (AUTO) 7.8 %; NEUTROPHILS # (AUTO) 2.1 10^3/uL (1.5-6.6); NEUTROPHILS % (AUTO) 45.9 %; PLT - PLATELET COUNT 302 10^3/uL (130-450); RED BLOOD COUNT 5.03 10^6/uL (4.20-5.40); RED CELL DISTRIBUTION WIDTH 12.6 % (12.0-15.0); WHITE BLOOD COUNT 4.6 x10^3/uL (4.8-10.8)
[2021-05-09 12:14] LABS: CREATININE,URINE 102.2 mg/dL; MICROALBUM/CREATININE RATIO,UR 75.3 ug/mg (<30.0); MICROALBUMIN,URINE 7.7 mg/dL (0-300.0)
[2021-05-09 12:22] LABS: THYROID STIMULATING HORMONE 0.8 uIU/mL (0.34-5.60)
[2021-05-09 12:24] LABS: ALBUMIN/GLOBULIN RATIO 1.6 (1.0-2.2); ALKALINE PHOSPHATASE 38 IU/L (42-121); ALT ALANINE AMINOTRANSFERASE 27 IU/L (10-60); AST ASPARTATE AMINOTRANSFERASE 27 IU/L (10-42); BILIRUBIN,TOTAL 1.1 mg/dL (0.2-1.0); BUN - BLOOD UREA NITROGEN 15 mg/dL (6-20); CALCIUM 9.6 mg/dL (8.5-10.3); CARBON DIOXIDE - CO2 24 mmol/L (21-32); CHLORIDE 102 mmol/L (101-111); CHOL/HDL RATIO 3.5 (<4.4); CHOLESTEROL 220 mg/dL; CREATININE 0.5 mg/dL (0.4-1.0); GFR - MDRD 128 (>89); GLUCOSE 108 mg/dL (70-100); HDL CHOLESTEROL 63 mg/dL; LDL CHOLESTEROL,CALCULATED 145 mg/dL; LDL/HDL RATIO 2.3 (<4.4); SODIUM 143 mmol/L (135-145); TOTAL PROTEIN 8.2 g/dL (6.7-8.2); TRIGLYCERIDES 62 mg/dL; VLDL CHOLESTEROL 12 mg/dL
[2021-05-09 12:49] LABS: ESTIMATED AVERAGE GLUCOSE 154 mg/dL (70-100)
== END 2021-05-09 23:59 | disposition home or self-care (01) ==
LOC: LAB.WCP 08:00
PROVIDERS: ATTEND Family Medicine
DX: E11.9 Type 2 diabetes mellitus without complications (principal)
CPT/HCPCS: 36415; 80053; 80061; 82043; 82570; 83036; 83721; 84443; 85025

== ENCOUNTER 2021-11-21 09:18 | Outpatient (CLI) | payer MEDICAID ==
--- NOTE | 2021-11-22 08:32 | Mammography Report ---
BILATERAL DIGITAL SCREENING MAMMOGRAM 3D/2D: 11/21/2021 CLINICAL: Routine screening. Comparison is made to exams dated: 09/30/2020 ultrasound, 09/30/2020 mammogram, 08/12/2020 mammogram, mammogram, 12/22/2013 mammogram - [facility], and 07/24/2011 mammogram - [facility]. The tissue of both breasts is heterogeneously dense. This may lower the sensitivity of mammography. No significant masses, calcifications, or other findings are seen in either breast. There has been no significant interval change. IMPRESSION: NEGATIVE There is no mammographic evidence of malignancy. A 1 year screening mammogram is recommended. This exam was interpreted at Station ID: [id number]. NOTE: For mammograms, a report in lay terms will be sent to the patient. Approximately 15% of breast malignancies will not be visualized mammographically. In the management of a palpable breast mass, a negative mammogram must not discourage biopsy of a clinically suspicious lesion. Electronically Signed By: Juan Carlos Chambers M.D., jr/casie:11/21/2021 09:59:01 ACR BI-RADS Category 1: Negative 3341F PARENCHYMAL PATTERN: (D) - The breast(s) demonstrate(s) heterogeneously dense fibroglandular kevin leiva. BI-RADS CATEGORY: (1) - 1 RECOMMENDATION: (ANNUAL) - Recommend routine annual screening mammography. [id number] 1 year screening LATERALITY: (B)
== END 2021-11-21 09:19 | disposition home or self-care (01) ==
LOC: DI.N 09:18
DX: Z12.31 Encounter for screening mammogram for malignant neoplasm of breast (principal)

== ENCOUNTER 2022-10-12 09:43 | Outpatient (CLI) | payer MEDICAID ==
[2022-10-12 10:02] LABS: BASOPHILS % (AUTO) 0.4 %; EOSINOPHILS # (AUTO) 0.1 10^3/uL (0.0-0.7); EOSINOPHILS % (AUTO) 1.2 %; HCT - HEMATOCRIT 46.2 % (37.0-47.0); HGB - HEMOGLOBIN 14.7 g/dL (12.0-16.0); LYMPHOCYTES # (AUTO) 1.8 10^3/uL (1.5-3.5); MEAN CORPUSCULAR HEMOGLOBIN 25.9 pg (27.0-31.0); MEAN CORPUSCULAR HGB CONC 31.8 g/dL (32.0-36.0); MEAN CORPUSCULAR VOLUME 81.3 fL (81.0-99.0); MEAN PLATELET VOLUME 9.8 fL (7.9-10.8); MONOCYTES # (AUTO) 0.3 10^3/uL (0.0-1.0); MONOCYTES % (AUTO) 6.5 %; NEUTROPHILS # (AUTO) 2.8 10^3/uL (1.5-6.6); NEUTROPHILS % (AUTO) 55.7 %; PLT - PLATELET COUNT 346 10^3/uL (130-450); RED BLOOD COUNT 5.68 10^6/uL (4.20-5.40); WHITE BLOOD COUNT 4.9 x10^3/uL (4.8-10.8)
[2022-10-12 10:14] LABS: CREATININE,URINE 81.6 mg/dL; MICROALBUM/CREATININE RATIO,UR 15.9 ug/mg (<30.0); MICROALBUMIN,URINE 1.3 mg/dL (0-300.0)
[2022-10-12 10:22] LABS: ALBUMIN 4.7 g/dL (3.2-5.5); ALBUMIN/GLOBULIN RATIO 1.5 (1.0-2.2); ALKALINE PHOSPHATASE 42 IU/L (42-121); ALT ALANINE AMINOTRANSFERASE 21 IU/L (10-60); AST ASPARTATE AMINOTRANSFERASE 21 IU/L (10-42); BILIRUBIN,TOTAL 0.8 mg/dL (0.2-1.0); BUN - BLOOD UREA NITROGEN 15 mg/dL (6-20); CALCIUM 10.2 mg/dL (8.5-10.3); CARBON DIOXIDE - CO2 28 mmol/L (21-32); CHLORIDE 98 mmol/L (101-111); CHOL/HDL RATIO 2.5 (<4.4); CHOLESTEROL 206 mg/dL; CREATININE 0.6 mg/dL (0.4-1.0); GFR - MDRD 103 (>89); GLUCOSE 145 mg/dL (70-100); HDL CHOLESTEROL 84 mg/dL; LDL CHOLESTEROL,CALCULATED 110 mg/dL; LDL/HDL RATIO 1.3 (<4.4); POTASSIUM 4.1 mmol/L (3.5-5.0); SODIUM 140 mmol/L (135-145); TOTAL PROTEIN 7.9 g/dL (6.7-8.2); TRIGLYCERIDES 59 mg/dL; VLDL CHOLESTEROL 12 mg/dL
[2022-10-12 10:34] LABS: THYROID STIMULATING HORMONE 0.86 uIU/mL (0.34-5.60)
[2022-10-12 12:02] LABS: ESTIMATED AVERAGE GLUCOSE 163 mg/dL (70-100); HEMOGLOBIN A1c% 7.3 % (4.27-6.07)
== END 2022-10-12 09:44 | disposition home or self-care (01) ==
LOC: LAB 09:43
PROVIDERS: ATTEND Physician Assistant
DX: E11.9 Type 2 diabetes mellitus without complications (principal); E78.5 Hyperlipidemia, unspecified
CPT/HCPCS: 36415; 80053; 80061; 82043; 82570; 83036; 83721; 84443; 85025

== ENCOUNTER 2022-11-16 07:25 | Outpatient (CLI) | payer MEDICAID ==
--- NOTE | 2022-11-16 09:59 | Ultrasound Report ---
PROCEDURE: Duplex Aorta Complete INDICATIONS: RLQ ABDOMEN PAIN, ABDOMINAL BRUIT TECHNIQUE: Color and pulse Doppler interrogation was performed of the aorta and iliac arterial systems, with angus ge documentation. COMPARISON: None. FINDINGS: Proximal Aorta: 39.5 cm/sec, with triphasic flow. Mid aorta: 73.6 cm/sec, with biphasic flow. Distal aorta: 71.4 cm/sec, with biphasic flow. Right lower extremity: Proximal common iliac artery: 55.5 cm/sec, with biphasic flow. Distal common iliac artery: 81.1 cm/sec, with biphasic flow. Proximal external iliac artery: not seen Distal external iliac artery: not seen Common femoral artery: 94.1 cm/sec, with biphasic flow. Mejia-scale imaging description: unremarkable. Left lower extremity: Proximal common iliac artery: 66.9 cm/sec, with biphasic flow. Distal common iliac artery: 51.9 cm/sec, with biphasic flow. Proximal external iliac artery: not seen Distal external iliac artery: not seen Common femoral artery: 117.2 cm/sec, with biphasic flow. Mejia-scale imaging description: unremarkable. IMPRESSION: No hemodynamically significant stenosis. Reviewed by: Cliff Pisano on 11/16/2022 9:58 AM PDT Approved by: Cliff Pisano on 11/16/2022 9:58 AM PDT Station ID: [id number]
--- NOTE | 2022-11-16 10:52 | Ultrasound Report ---
PROCEDURE: Abdomen Complete INDICATIONS: RLQ ABDOMEN PAIN, ABDOMINAL BRUIT TECHNIQUE: Real-time scanning was performed of the abdominal and retroperitoneal organs, with image documentatio n. COMPARISON: None. FINDINGS: Liver: Mildly increased echogenicity. Gallbladder: Unremarkable. Biliary ducts: Intrahepatic bile ducts are non-dilated. Extrahepatic bile duct caliber measures 5 m m. Normal is 6-7 mm or less in diameter, or 10 mm or less post-cholecystectomy. Pancreas: Visualized portions of the pancreas are sonographically normal. Spleen: Spleen is normal in size and homogeneous in echotexture. Kidneys: Kidneys are normal in size and echotexture. Right kidney measures 10.4 cm long; left kidne y measures 11.5 cm long. No hydronephrosis or nephrolithiasis. No solid masses. Aorta: Visualized aorta is normal in caliber at less than 3 cm. Iliacs: Proximal common iliac arteries are normal in caliber at less than 2.5 cm. IVC: Intrahepatic inferior vena cava is patent. Miscellaneous: No free abdominal fluid. IMPRESSION: Mildly hyperechoic liver, likely hepatic steatosis. Reviewed by: Cliff Pisano on 11/16/2022 10:51 AM PDT Approved by: Cliff Pisano on 11/16/2022 10:51 AM PDT Station ID: [id number]
== END 2022-11-16 07:26 | disposition home or self-care (01) ==
LOC: DI 07:25
PROVIDERS: ATTEND Physician Assistant
DX: R09.89 Other specified symptoms and signs involving the circulatory and respiratory systems (principal); R10.31 Right lower quadrant pain
CPT/HCPCS: 93978

== ENCOUNTER 2023-06-20 08:41 | Outpatient (CLI) | payer MEDICAID ==
[2023-06-20 11:51] LABS: ESTIMATED AVERAGE GLUCOSE 171 mg/dL (70-100); HEMOGLOBIN A1c% 7.6 % (4.27-6.07)
[2023-06-20 12:02] LABS: CALCIUM 9.7 mg/dL (8.5-10.3); CREATININE 0.5 mg/dL (0.6-1.3)
== END 2023-06-20 08:42 | disposition home or self-care (01) ==
LOC: LAB.N 08:41
PROVIDERS: ATTEND Physician Assistant
DX: E11.9 Type 2 diabetes mellitus without complications (principal)
CPT/HCPCS: 36415; 80048; 83036

== ENCOUNTER 2023-07-30 13:15 | Outpatient (CLI) | payer MEDICAID ==
--- NOTE | 2023-07-30 15:38 | XRAY Report ---
PROCEDURE: Foot 3 View LT INDICATIONS: LEFT GREAT TOE CRUSH INJURY TECHNIQUE: 3 views of the foot were acquired. COMPARISON: None. FINDINGS: Bones: Nondisplaced fracture at the base of the first distal phalanx. Fracture lucency extends into the articular surface. Soft tissues: No suspicious soft tissue calcifications or masses. IMPRESSION: Nondisplaced intra-articular distal first phalanx fracture. Reviewed by: Susana Slater MD on 07/30/2023 3:37 PM [facility] Approved by: Susana Slater MD on 07/30/2023 3:37 PM [facility] Station ID: [id number]
== END 2023-07-30 13:30 | disposition home or self-care (01) ==
LOC: DI.N 13:15
PROVIDERS: ATTEND Physician Assistant Medical
DX: S92.425A Nondisplaced fracture of distal phalanx of left great toe, initial encounter for closed fracture (principal)

== ENCOUNTER 2023-09-03 12:13 | Outpatient (CLI) | payer MEDICAID ==
--- NOTE | 2023-09-04 10:42 | Mammography Report ---
BILATERAL DIGITAL SCREENING MAMMOGRAM 3D/2D: 09/03/2023 CLINICAL: Routine screening. Comparison is made to exams dated: 11/21/2021 mammogram, 09/30/2020 ultrasound, 09/30/2020 mammogram, mammogram, 08/14/2016 mammogram, and 12/22/2013 mammogram - [facility]. Both breasts are heterogeneously dense, which may obscure small masses (category c / 51-75% glandular tissue). There are benign post operative findings in the left breast. No significant masses, calcifications, or other findings are seen in either breast. There has been no significant interval change. IMPRESSION: BENIGN There is no mammographic evidence of malignancy. A 1 year screening mammogram is recommended. Based on the Tyrer Cuzick model (a risk assessment model) the patients lifetime risk is 14.4% and he r 10 year risk is 5.6%. According to the ACR, ACS, and NCCN guidelines, an annual breast MRI exam anurag ng with mammogram is recommended if the patients lifetime risk is 20% or greater. This exam was interpreted at Station ID: [id number]. NOTE: For mammograms, a report in lay terms will be sent to the patient. Approximately 15% of breast malignancies will not be visualized mammographically. In the management of a palpable breast mass, a negative mammogram must not discourage biopsy of a clinically suspicious lesion. Electronically Signed By: Michelle rolon/casie:09/03/2023 16:52:00 letter sent: No_Letter ACR BI-RADS Category 2: Benign Finding(s) 3342F PARENCHYMAL PATTERN: (D) - The breast(s) demonstrate(s) heterogeneously dense fibroglandular kevin leiva. BI-RADS CATEGORY: (2) - 2 Mammogram [id number] 1 year screening LATERALITY: (B)
== END 2023-09-03 12:14 | disposition home or self-care (01) ==
LOC: DI.N 12:13
DX: Z12.31 Encounter for screening mammogram for malignant neoplasm of breast (principal); R92.333 Mammographic heterogeneous density, bilateral breasts